=== PATIENT | female | born 1935 | race Caucasian/White ===

== ENCOUNTER → 2022-05-01 12:27 | Outpatient (CLI) | payer MEDICARE, SELFPAY ==
--- NOTE | ~2022-05-01 | DEXA_ITS ---
Bone Density Report Name: RENA CODY Age: 86 Sex: Female Ethnicity: White Date of : 1935 Indication: postmenopausal; screening for osteoporosis; height loss; Referring Provider: Humble, Janet Crooks Study: Bone densitometry was performed. Exam Date: May 01, 2022 Accession number: [id number] Bone Density: Region BMD T-score Z-score Classification AP Spine (L1-L4) 0.803 -2.2 0.6 Osteopenia Femoral Neck (Left) 0.500 -3.1 -0.7 Osteoporosis Total Hip (Left) 0.560 -3.1 -0.8 Osteoporosis Femoral Neck (Right) 0.450 -3.6 -1.1 Osteoporosis Total Hip (Right) 0.527 -3.4 -1.1 Osteoporosis Total Hip Mean 0.544 -3.3 -1.0 Osteoporosis World Health Organization criteria for BMD impression classify patients as: Normal (T-score at or above -1.0), Osteopenia (T-score between -1.0 and -2.5), or Osteoporosis (T-score at or below -2.5). 10-year Fracture Risk: FRAX not reported because: Some T-score for Spine Total or Hip Total or Femoral Neck at or below -2.5 Clinical Information Provided by Patient: Has 3 or more alcoholic drinks per day Patient maximum height was 66 Menopause Age: 60 No regular weight bearing exercise Does not regularly consume dairy products Drinks caffeinated beverages Onset of menses at age 16 Number of children 0 Impression: The patient has osteoporosis, based on the Right Femoral Neck T-score. The patient has risk factors, including: excessive alcohol use. Discussion: INCREASED RISK OF FRACTURE. BONE DENSITY IS UNDESIRABLY LOW AT ONE OR MORE SKELETAL SITES, CONSISTENT WITH POSTMENOPAUSAL OSTEOPOROSIS. This patient's lowest T-score meets the World Health Organization's (WHO) criteria for osteoporosis at one or more sites (T-score -2.5 or below). In untreated patients, the risk of osteoporotic fracture increases approximately two-fold for each 1.0 SD decrease in T-score. Low bone density is not the only risk factor for fracture; also consider factors such as patient's age, frailty or poor health, risk of falling, risk of injury, previous osteoporotic fracture, family history of osteoporosis, cigarette smoking, low body weight, etc. Not everyone with low bone mineral density has osteoporosis; osteomalacia and other metabolic bone disorders should also be considered. Patients who have osteoporosis should be evaluated for specific diseases and conditions (secondary causes) that may cause or contribute to bone loss. The [place] [employer]ocrinologists (AACE) and National Osteoporosis Foundation (NOF) recommend pharmacologic intervention for all postmenopausal women whose T-score is in this range. The patient should follow a healthful lifestyle (good nutrition with adequate calcium and vitamin D, and appropriate weight-bearing exercise). Follow-Up: Consider a repeat BMD and V
--- NOTE | ~2022-05-01 | XR_ITS ---
Lumbosacral Spine: AP and lateral views Clinical History: Pain Findings: The normal lordotic curve is maintained. No fracture or subluxation evident. There are mild degenerative changes of the lumbar spine. There is facet arthropathy at L4-L5 and L5-S1. The sacroil iac joints are normally outlined. Impression: Mild degenerative spondylosis, as detailed above. No definite fracture or subluxation. Reviewed, dictated and finalized at location . [facility] Impression: Mild degenerative spondylosis, as detailed above. No definite fracture or subluxation.
== END ==
PROVIDERS: PCP Nurse Practitioner Family; Visit Provider Nurse Practitioner Family
DX: M54.50 Low back pain, unspecified (principal); Z78.0 Asymptomatic menopausal state; M47.816 Spondylosis without myelopathy or radiculopathy, lumbar region; M85.88 Other specified disorders of bone density and structure, other site; M81.0 Age-related osteoporosis without current pathological fracture
CPT/HCPCS: 72100; 77080

== ENCOUNTER → 2022-10-03 10:23 | Outpatient (CLI) | payer SELFPAY ==
--- NOTE | ~2022-10-03 | XR_ITS ---
EXAMINATION: XR hand RT min 3V INDICATION: Right hand pain TECHNIQUE: Three views of the right hand are obtained. COMPARISON: None available FINDINGS: There is severe osteoarthritis of the interphalangeal joints. No acute fracture is identifi ed. The soft tissues are unremarkable. There is mild osteoarthritis of the wrist. IMPRESSION: 1. Polyarticular osteoarthritis. Reviewed, dictated and finalized at location []
--- NOTE | ~2022-10-03 | XR_ITS ---
EXAMINATION: XR wrist RT min 3V INDICATION: Right wrist pain TECHNIQUE: Four views of the right wrist are obtained. COMPARISON: None available FINDINGS: Bone alignment is normal. There is no fracture. There is mild osteoarthritis of the wrist. Calcified atherosclerosis is noted. IMPRESSION: 1. No acute osseous abnormality. Reviewed, dictated and finalized at location []
== END ==
PROVIDERS: PCP Nurse Practitioner Family; Visit Provider Nurse Practitioner Family
DX: M25.531 Pain in right wrist (principal); M19.041 Primary osteoarthritis, right hand
CPT/HCPCS: 73110; 73130

== ENCOUNTER 2024-08-23 13:20 | Emergency (ER) | payer MEDICARE, SELFPAY ==
--- NOTE | ~2024-08-23 | CT_ITS ---
History: Ground-level fall PROCEDURE: CT cervical spine without intravenous contrast. COMPARISON: 12/23/2013 TECHNIQUE: Multiple contiguous axial images of the cervical spine were performed without the administration of i ntravenous contrast. DLP: 97 mGy-cm FINDINGS: Straightening and slight reversal of the normal curvature of the cervical spine is identified, likely muscular in origin. Severe degenerative disease is noted. No acute fractures are present. Biapical scarring. Densely calcified atherosclerotic disease. The airway is patent. Impression: Straightening and slight reversal of the normal curvature of the cervical spine, likely muscular in o rigin. Severe degenerative disease, without acute fracture. Reviewed, dictated and finalized at location A. Impression: Straightening and slight reversal of the normal curvature of the cervical spine , likely muscular in origin. Severe degenerative disease, without acute fracture.
--- NOTE | ~2024-08-23 | XR_ITS ---
HISTORY: fall, abrasion, ecchymosis COMPARISON: None TECHNIQUE: 2 views of the right elbow were performed FINDINGS: No acute fracture is identified. No elevation of the anterior or posterior fat pads are identified to suggest a supracondylar fracture . Overlying soft tissues are unremarkable. Bone mineralization is age-appropriate. IMPRESSION: No acute fracture or dislocation, as detailed above Reviewed, dictated and finalized at location A.
--- NOTE | ~2024-08-23 | CT_ITS ---
History: Ground-level fall. PROCEDURE: CT head without contrast. COMPARISON: 12/24/2023 TECHNIQUE: Axial imaging of the head performed from the skull base to the vertex without IV contrast. Sagittal a nd coronal reformations obtained. DLP: 681 mGy-cm FINDINGS: The ventricles are enlarged. The dilatation of the ventricles is proportional to the degree of sulcal prominence, not uncommon in the senescent brain. 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 Basal ganglia calcifications are present. There is no mass, mass effect or midline shift. There is no abnormal extra-axial fluid collection or intracranial hemorrhage. Visualized paranasal sinuses are clear. The mastoid air cells are well aerated. No acute displaced fractures within the overlying cranium. Skin malgorzata project over the right posterior scalp. Impression: No acute intracranial hemorrhage or suspicious mass effect. Reviewed, dictated and finalized at location A. Impression: No acute intracranial hemorrhage or suspicious mass effect.
[2024-08-23 13:21] VITALS: BP 153/77; PULSE 102; RESP 19; TEMP 36.8; O2SAT 97
--- OUTSIDE RECORDS SUMMARY | 2024-08-23 13:56 | XMS_ITS ---
Author Organization [employer] [address] [place] [address] [place] [id number] Care Team Providers Care Water Team Leader Name Role Phone Lucien Choudhary MD Primary Care Provider [phone] Active Problems Patient Care Coordination No te Formatting of this note migh t be different from the original. 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 2006, clinically stage I 201009/08/2010 Overview (02/09/2011): Left Breast 2006: ICD9 174.5 (LOQ) ER/NJ(-) DCIS Lumpectomy ([facility]) RT: 08/08-08/14/06 MammoSite HDR Brachy 3400 cGy in 340 cGy x 10 fx bid 2010: ICD9 174.4 (UOQ - 4.5 cm away from 1st cancer) Clinical Stage I Pathologic Stage yTx yN0 ER/NJ(-) G3 IDC Med Onc ([facility]): Neoadjuvant FEC x 3 & Taxotere x 3 Lumpectomy/SLN (02/05/11 - [facility]): pCR, 0/1 SLN Breast Cancer left 2010 cT1N0 pT0N0 09/08/2010 Overview (04/28/2013): 4/12/07 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 Past Treatment and Therapy Plans No past plan information found. Lifetime Dose Tracking * Chemical Lifetime Dose Automatic Entry Manual Entr y epirubicin 302.326 mg/m2 (522 mg) 302.326 mg/m2 (522 mg) 0 mg/m2 (0 mg) Effective Dose 3.3 mSv 3.3 mSv 0 mSv Total DLP 1,203 DLP 1,203 DLP 0 DLP CTDIvol Max 64.3 mGy 64.3 mGy 0 mGy CTDIvol Min 64.3 mGy 64.3 mGy 0 mGy
--- OUTSIDE RECORDS SUMMARY | 2024-08-23 13:56 | XMS_ITS | Encounter Summary ---
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 Machine Operator Name Role Phone Ovi MONTEIRO MD, Vazquez Phillips Primary Care Provider Encounter Details Date Type Department Care Team (Late st Contact Info) Description 07/27/2024 Results Follow-Up [facility] at [address] [phone] Jennifer Garcia NP [address] [facility] [address] [place] [address] XR Knee Left 4 or More Views Social History Tobacco Use Types Packs/Day Years Used Date Smoking Tobacco: Former Cigarettes 0.5 21 1 958 - 04/16/1978 Smokeless Tobacco: Never Alcohol Use Standard Drinks/Week Comments Yes 4 (1 standard drink = 0.6 oz pur e alcohol) AUDIT-C Answer Date Recorded Q1: How often do you have a drink containing alcohol? Never 05/13/2024 Q2: How many drinks containi ng alcohol do you have on a typical day when you are drinking? Patient does not drink Q3: How often do you have si x or more drinks on one occasion? 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
--- OUTSIDE RECORDS SUMMARY | 2024-08-23 13:56 | XMS_ITS | Clinical Summary ---
Author Organization [facility] Address [facility] [place] [address] Care Team Providers Care Senior Specialist Name Role Phone Ovi MONTEIRO MD, Vazquez Phillips Primary Care Provider Allergies Active Allergy Reactions Criticality Noted Date Comments Aspirin Nausea & Vomiting Low 04/16/2018 Omeprazole Stomach upset Low 01/24/2021 Penicillins Nausea And Vomiting,Unknown,Rash Medium 10/31/2017 Many years ago but doesn't recall what the reaction was Medications acetaminophen (TYLENOL) 500 mg tablet Take 1 tablet (500 mg total) by mouth every 4 (four) hours as needed for pain or headaches 8 Active alfalfa 250 mg tabletIndicati ons:for supplement Take 500 mg by mouth every morning. Active cyanocobalamin , vitamin B-12, 5,000 mcg tablet, sublingualIndi cations:for supplement Place 5,000 mg under the tongue 2 (two) times a day. Active turmeric-turme lionel root extract 450-50 mg capsuleIndicat ions:for supplement Take 1 capsule by mouth 2 (two) times a day. Active VITAMIN K2 ORALIndication s:for supplement Take 100 mg by mouth every morning. Active aspirin 81 mg tabletIndicati ons:prevention of thrombosis Take 1 tablet (81 mg total) by mouth every morning Active biotin 5 mg tabletIndicati ons:for supplement Take 5 mg by mouth every morning Active cholecalcifero l (VITAMIN D-3) 2,000 unit capsuleIndicat ions:for supplement Take 1 capsule (2,000 Units total) by mouth every morning Active vit C/vit E/lutein/min/o yanni-3 (OCUVITE ORAL)Indicatio ns:for supplement Take 1 tablet by mouth every morning Active trimethoprim-p olymyxin B (POLYTRIM) ophthalmic solutionIndica tions:per Dr. Chapman presurgery Administer into the right eye every 6 (six) hours. Active ketorolac (ACULAR) 0.5 % ophthalmic solutionIndica tions:Dr. Chapman preop Administer 1 drop into the right eye 3 (three) times a day Active Viktoria's wort 150 mg capsuleIndicat ions:for supplement Take by mouth 2 (two) times a day Active jvpftjaw-vng-l hondr-vit C-hyal 215-075-885-10 mg tabletIndicati ons:for supplement Take by mouth every morning Active zolpidem (AMBIEN) 5 mg tabletIndicati ons:Sleep-Onse t Insomnia Take 1 tablet (5 mg total) by mouth nightly 90 tablet 1 0 Active Additional Information Patient not taking.Reported on 08/13/2024 LORazepam (ATIVAN) 0.5 mg tablet 1 Active mirtazapine (REMERON) 7.5 mg tablet Take 1 tablet (7.5 mg total) by mouth nightly Start at 1/2 pill nightly for now. 30 tablet 1 Active Additional Information Patient not taking.Reported on 08/10/2024 lidocaine (ASPERCREME) 4 % adhesive patch,medicate d Active PARoxetine (PAXIL) 10 mg tablet Take 1 tablet (10 mg total) by mouth daily 3 Active alendronate (FOSAMAX) 70 mg tablet 3 Active amLODIPine (NORVASC) 5 mg tablet Take 1 tablet (5 mg total) by mouth daily 4 Active donepeziL (ARICEPT) 5 mg tablet Take 1 tablet (5 mg total) by mouth daily 4 Active escitalopram (LEXAPRO) 20 mg tablet Take 1 tablet every day by oral route. Active diclofenac sodium (VOLTAREN) 1 % gelIndications :Acute pain of left knee Apply 2 g topically 2 (two) times a day 100 g 5 Active rosuvastatin (CRESTOR) 20 mg tablet Take 1 tablet (20 mg total) by mouth daily 5 Active losartan (COZAAR) 50 mg tablet TAKE 1 TABLET TWICE A DAY BY ORAL ROUTE FOR 90 DAYS. 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 Overview (02/15/2023): Breast conservation, DCIS, ER negative, [place] negative, November 2006.Stage 0 H/O: depression 02/15/2023 Invasive ductal carcinoma of breast 02/15/2023 Lumbar spondylosis 01/17/2023 Pain of left hip joint 01/17/2023 Soft tissue swelling of ankle joint 01/17/2023 Constipation 10/03/2022 Pain in right hand 10/03/2022 Osteoporosis 05/01/2022 Gastroesophageal reflux disease 08/09/2021 Swelling of breast 06/01/2021 Numbness and tingling sensation of skin 03/29/20 Anxiety 10/25/2020 Essential hypertension 10/25/2020 Allergic rhinitis 07/15/2020 Pain in throat 07/07/2020 Hyperglycemia 02/23/2020 Hyperlipidemia 02/23/2020 Insomnia 02/23/2020 Major depressive disorder 02/23/2020 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 Patient is to follow up with us immediately if new changes on AMSLER, new central scotoma, new central distortion, or sudden vision loss occurs. Smoking cessation if patient is a current tobacco user. 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 Suspicious of AMD. No hemorrhage noted today. -- Would explain metamorphopsia OS which could be causing visual confusion leading to her trouble reading -- Symptoms could have been previously masked by her cataract OS -- Referral to retina for evaluation and possible treatment Pseudophakia of both eyes 07/07/2018 Assessment & Plan (03/02/2020 11:51 AM ZONE SUPERVISOR FIREAR[employer]): Stable exam. Trouble with near-vision, may be partially due to macular degeneration. Consider MRx today. Assessment & Plan (08/26/2018 2:04 PM CDT): -Stable, continue to monitor -Signs and symptoms of retinal detachment and tears discussed with the patient Assessment & Plan (07/07/2018 3:30 PM CDT): Implants in good location OU Closed displaced transverse fracture of shaft of right humerus 03/05/2017 BRCA1 positive 02/12/2012 Family history of genetic disease carrier 2011 Family history of breast cancer 11/29/2011 Family history of colorectal cancer 11/29/2011 Family history of ovarian cancer 11/29/2011 Closed fracture of distal end of radius 11/24/19 11 Malignant neoplasm of upper-outer quadrant of fe male breast 09/08/2010 Overview (02/15/2023): 07/18/06 LEFT breast DCIS int grade ER-[place]- S/p lumpectomy & MammoSite HDR Brachy (August 2006) 09/05/10 Stage LABC ( Tx Nx Mx) IDC LEFT breast TRIPLE NEGATIVE Ki67 94% Plan: neoadjuvant Clinically stage 1 (14mm by u/s) T1N0 Malignant neoplasm of breast 09/07/2010 Encounters Date Type Department Care Team Description 08/13/2024 11:15 AM CDT Office Visit [facility] at [address] [place] [address] Lucien Mendez DO Displaced comminuted fracture of left patella, initial encounter for closed fracture (Primary Dx) 08/11/2024 Telephone [facility] [address] [place] [address] [address] [address] Jami Goodman MA 08/10/2024 4:00 PM CDT Ancillary Procedure [facility] at [address] [phone] Fall, initial encounter 08/10/2024 3:45 PM CDT Office Visit [facility] at [address] [phone] Jennifer Garcia, ENGLISH AS A SECOND LANGUAGE TEACHER Fall, initial encounter (Primary Dx); Closed displaced fracture of left patella, unspecified fracture morphology, initial encounter 08/10/2024 Results Follow-Up [facility] at [address] [phone] Jennifer Garcia, ENGLISH AS A SECOND LANGUAGE TEACHER XR Knee Left 3 Views 07/27/2024 2:35 PM CDT Ancillary Procedure [facility] at [address] [phone] Acute pain of left knee 07/27/2024 2:30 PM CDT Office Visit [facility] at [address] [phone] Jennifer Garcia, ENGLISH AS A SECOND LANGUAGE TEACHER Acute pain of left knee (Primary Dx); Closed nondisplaced fracture of left patella, unspecified fracture morphology, initial encounter 07/27/2024 Results Follow-Up [facility] at [address] [phone] Jennifer Garcia, ENGLISH AS A SECOND LANGUAGE TEACHER XR Knee Left 4 or More Views 06/19/2024 11:45 AM CDT Ancillary Procedure [facility] at [address] [phone] 06/19/2024 11:15 AM CDT Office Visit [facility] at [address] [phone] Lucien Mendez DO Closed nondisplaced fracture of third metatarsal bone of right foot with routine healing, subsequent encounter (Primary Dx) 06/04/2024 11:15 AM ZONE SUPERVISOR FIREARMS Ancillary Procedure [facility] at [address] [phone] Acute left ankle pain 06/04/2024 10:45 AM ZONE SUPERVISOR FIREAR[employer] Office Visit [facility] at [address] [place] [address] Lucien Mendez DO Closed nondisplaced fracture of third metatarsal bone of right foot with routine healing, subsequent encounter (Primary Dx); Acute left ankle pain 06/04/2024 10:35 AM ZONE SUPERVISOR FIREARMS Ancillary Procedure [facility] at [address] [phone] Closed nondisplaced fracture of third metatarsal bone of right foot, initial encounter from Last 3 Months Surgical History Surgery Date Site/Laterality Comments ARM SURGERY 11/06/2017 - 12/06/2017 Right Fracture Humerus Repaired CYSTOSCOPY for kidney stone BREAST SURGERY 2006, 2010 lumpectomy CATARACT EXTRACTION 04/23/2018 Right Medical History Medical History Date Comments Depression HTN (hypertension) Ductal carcinoma in situ (DCIS) of breast Family History Medical History Relation Name Comments Colon cancer Mother Cancer, colon; Glaucoma Neg Hx Macular degeneration Neg Hx Retinal detachment Neg Hx Relation Name Status Comments Mother Social History Tobacco Use Types Packs/Day Years Used Date Smoking Tobacco: Former Cigarettes 0.5 21 1 958 - 04/16/1978 Smokeless Tobacco: Never Tobacco Cessation:Counseling Given: Not Answered Alcohol Use Standard Drinks/Week Comments Yes 4 [...] on file Legal Sex Female 8:43 PM 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 SUPERVISOR FIREAR[employer] Gender Identity Not on file Sexual Orientation Not on file Obstetrics History Last Filed Vital Signs Vital Sign Reading Time Taken Comments Blood Pressure 142/64 08/13/2024 11:11 AM CDT Pulse 99 08/13/2024 11:11 AM CDT Temperature 36.4 C (97.6 F) 08/10/2024 3:37 PM CDT Respiratory Rate 16 08/13/2024 11:11 AM CDT Oxygen Saturation 98% 08/10/2024 3:37 PM CDT Inhaled Oxygen Concentration - - Weight 53.3 kg (117 lb 6.4 oz) 08/13/2024 11:11 AM CDT Height 160 cm (5' 3 ) 08/13/2024 11:11 AM CDT Body Mass Index 20.8 08/13/2024 11:11 AM CDT Plan of Treatment Health Maintenance Due Date Last Done Comments Depression Screening 1935 Fall Risk Assessment 1935 DTaP/Tdap/Td Vaccine (1 - Tdap) 1948 Hepatitis B Screening 12/01/1955 Pneumococcal vaccine 65+ (1 of 1 - PCV) 12/01/1987 Zoster Vaccine (1 of 2) 12/01/1987 Well Visit 65+ 2002 Covid-19 Vaccine (5 - 2023-2 5 season) 2023 07/20/2021, 12/30/2020, 06/29/2020, Additional history exists Influenza Vaccine (Season Ended) 2024 Medical Devices Implanted Type Area Feather Mixer Device Identifier Shelf Expiration Date Model / Serial / Lot [employer] [id number] Tecnis Protec Tecnis Itec 6mm 13mm 1 Piece Anterior Aspheric - [id number] - [id number] Implanted:Qty: 1 on 04/23/2018 by Kareem Chapman MD at [facility] Lens [employer] [id number] 11/23/2020 [id number] / [id number] / [employer] [id number] Tecnis Protec Tecnis Itec 6mm 13mm 1 Piece Anterior Aspheric - [id number] - [id number] Implanted:Qty: 1 on 05/14/2018 by Kareem Chapman MD at [facility] Medicine Lens Left: Eye [employer] [id number] 01/21/2021 [id number] / [id number] / 0 Procedures Procedure Name Priority Date/Time Associated Diagnosis Comments XR KNEE LEFT 3 VIEWS Schedule ROSE MARIE, Read ROSE MARIE (Appt Today, Awaiting Results) 08/10/2024 4:07 PM CDT Fall, initial encounter XR KNEE LEFT 4 OR MORE VIEWS Schedule ROSE MARIE, Read ROSE MARIE (Appt Today, Awaiting Results) 07/27/2024 2:43 PM CDT Acute pain of left knee XR FOOT RIGHT 3 OR MORE VIEWS Schedule Routine, Read Routine (OP Routine) 06/19/2024 11:20 AM CDT Closed nondisplaced fracture of third metatarsal bone of right foot with routine healing, subsequent encounter XR ANKLE LEFT 3 OR MORE VIEWS Schedule Routine, Read Routine (OP Routine) 06/04/2024 11:20 AM ZONE SUPERVISOR FIREARMS Acute left ankle pain XR FOOT RIGHT 3 OR MORE VIEWS Schedule Routine, Read Routine (OP Routine) 06/04/2024 10:46 AM ZONE SUPERVISOR FIREAR[employer] Closed nondisplaced fracture of third metatarsal bone of right foot, initial encounter from Last 3 Months Results * XR Knee Left 3 Views (08/10/2024 4:07 PM CDT) Anatomical Region Laterality Modality Lower Extremities, Knee Left Digital Radiography 08/10/2024 5:25 PM CDT Narrative 08/10/2024 5:27 PM CDT EXAM DESCRIPTION: XR KNEE LEFT 3 VIEWS REASON FOR STUDY: Knee trauma, no prior imaging (Age >= 5y), new fall yesterday- previous suspected patellar fracture. Pt complains of left knee pain after fall. Prior patella fx a few weeks ago. No prior surgery TECHNIQUE: 3 radiographic view(s) of the left knee . COMPARISON: 07/27/2024 FINDINGS: Patellar fracture is evident with significant displacement of the fragments . Other bones appear to be intact. The bones are osteopenic. Anterior soft tissue swelling is noted. Joint effusion is suspected anteriorly. IMPRESSION: Patellar fracture with displacement of fragments. THIS IS AN ELECTRONICALLY VERIFIED FINAL REPORT 08/10/2024 5:27 PM - Electronically signed by Geraldo Traore M.D. KH T: Report ID: [id number] Reading Location: [place] [address] Procedure Note Geraldo Traore MD - 08/10/2024 EXAM DESCRIPTION: XR KNEE LEFT 3 VIEWS REASON FOR STUDY: Knee trauma, no prior imaging (Age >= 5y), new fall yesterday- previous suspected patellar fracture. Pt complains of left knee pain after fall. Prior patella fx a few weeksago. No prior surgery TECHNIQUE: 3 radiographic view(s) of the left knee . COMPARISON: 07/27/2024 FINDINGS: Patellar fracture is evident with significant displacement ofthe fragments . Other bones appear to be intact. The bones are osteopenic. Anterior soft tissue swelling is noted. Joint effusion is suspected anteriorly. IMPRESSION: Patellar fracture with displacement of fragments. THIS IS AN ELECTRONICALLY VERIFIED FINAL REPORT 08/10/2024 5:27 PM - Electronically signed by Geraldo LAWSON T: Report ID: [id number] Reading Location: [place] [address] Jennifer Garcia NP IMG XR PROCEDURES Final Re sult * XR Knee Left 4 or More Views (07/27/2024 2:43 PM CDT) Anatomical Region Laterality Modality Lower Extremities, Knee Left Digital Radiography 07/27/2024 3:08 PM CDT Narrative 07/27/2024 3:20 PM CDT EXAM DESCRIPTION: XR KNEE LEFT 4 OR MORE VIEWS REASON FOR STUDY: accidental fall, fall on 07/12, knee swelling continued bruising Pt complains of left knee pain x 2 weeks after a fall. Pain and swelling to front of knee. No prior surgery or fx TECHNIQUE: 4 radiographic view(s) of the left knee . COMPARISON: None available FINDINGS: No dislocation is seen.. Linear lucency is seen within the patella on the patellar and lateral views, involving the superior aspect of the patella, suspicious for nondisplaced fracture. There is anterior soft tissue swelling. There is small joint effusion. There is atherosclerosis. IMPRESSION: Suspect nondisplaced left patellar fracture. Small joint effusion. Anterior soft tissue swelling. THIS IS AN ELECTRONICALLY VERIFIED FINAL REPORT 07/27/2024 3:20 PM - Electronically signed by Donald Rivera M.D. MZ T: Report ID: [id number] Reading Location: [id number] Procedure Note Donald Rivera MD - 07/27/2024 EXAM DESCRIPTION: XR KNEE LEFT 4 OR MORE VIEWS REASON FOR STUDY: accidental fall, fall on 07/12, knee swelling continued bruising Pt complains of left knee pain x 2 weeks after a fall. Pain and swellingto front of knee. No prior surgery or fx TECHNIQUE: 4 radiographic view(s) of the left knee . COMPARISON: None available FINDINGS: No dislocation is seen.. Linear lucency is seen within thepatella on the patellar and lateral views, involving the superior aspect of the patella, suspicious for nondisplaced fracture. There is anterior softtissue swelling. There is small joint effusion. There is atherosclerosis. IMPRESSION: Suspect nondisplaced left patellar fracture. Small joint effusion. Anterior soft tissue swelling. THIS IS AN ELECTRONICALLY VERIFIED FINAL REPORT 07/27/2024 3:20 PM - Electronically signed by Donald Rivera M.D. MZ T: Report ID: [id number] Reading Location: [id number] Jennifer Garcia NP IMG XR PROCEDURES Final Re sult * XR Foot Right 3 or More Views (06/19/2024 11:20 AM CDT) Anatomical Region Laterality Modality Lower Extremities, Foot Right Digital Radiography 06/25/2024 12:5 7 PM CDT Narrative 06/25/2024 1:11 PM CDT EXAM DESCRIPTION: XR FOOT RIGHT 3 OR MORE VIEWS REASON FOR STUDY: pain Follow up third metatarsal fracture from 05/05 FINDINGS: Three views submitted with comparison 06/04/2024. Healing right 3rd and 4th metatarsal neck and small toe proximal phalanx fractures are present. Polyarticular midfoot osteoarthritis is present. Hallux valgus with a bunion deformity and moderate 1st metatarsophalangeal joint osteoarthritis. IMPRESSION: Healing right 3rd and 4th metatarsal neck and small toe proximal phalanx fractures. THIS IS AN ELECTRONICALLY VERIFIED FINAL REPORT 06/25/2024 1:11 PM - Electronically signed by Lucien Swartz M.D. T: Report ID: [id number] Reading Location: [id number] Procedure Note Lucien Swartz MD - 06/25/2024 EXAM DESCRIPTION: XR FOOT RIGHT 3 OR MORE VIEWS REASON FOR STUDY: pain Follow up third metatarsal fracture from 05/05 FINDINGS: Three views submitted with comparison 06/04/2024. Healing right 3rd and 4th metatarsal neck and small toe proximal phalanx fractures are present. Polyarticular midfoot osteoarthritis is present. Hallux valgus with a bunion deformity and moderate 1st metatarsophalangeal joint osteoarthritis. IMPRESSION: Healing right 3rd and 4th metatarsal neck and small toe proximal phalanx fractures. THIS IS AN ELECTRONICALLY VERIFIED FINAL REPORT 06/25/2024 1:11 PM - Electronically signed by Lucien Swartz M.D. T: Report ID: [id number] Reading Location: [place] [address] Lucien Mendez DO IMG XR PROCEDURES Gloria l Result * XR Ankle Left 3 or More Views (06/04/2024 11:20 AM ZONE SUPERVISOR FIREAR[employer]) Anatomical Region Laterality Modality Lower Extremities, Ankle Left Digital Radiography 06/07/2024 8:12 PM ZONE SUPERVISOR FI[employer]AR[employer] Narrative 06/07/2024 8:16 PM ZONE SUPERVISOR [employer] EXAM DESCRIPTION: XR ANKLE LEFT 3 OR MORE VIEWS REASON FOR STUDY: Left ankle pain Pt complains of left ankle pain just today. No prior fx or surgery FINDINGS: Three views nonweightbearing submitted without comparison. No acute fracture. Likely old healed left ankle fracture is noted. Ankle joint space and mortise are normal. No evidence of an ankle effusion. Mild calcaneocuboid joint osteoarthritis is present. Arterial atherosclerosis noted. Mild lateral ankle soft tissue swelling. IMPRESSION: No acute fracture. Mild lateral ankle soft tissue swelling. Mild left calcaneocuboid joint osteoarthritis. THIS IS AN ELECTRONICALLY VERIFIED FINAL REPORT 06/07/2024 8:16 PM - Electronically signed by Lucien Swartz M.D. T: Report ID: [id number] Reading Location: [id number] Procedure Note Lucien Swartz MD - 06/07/2024 EXAM DESCRIPTION: XR ANKLE LEFT 3 OR MORE VIEWS REASON FOR STUDY: Left ankle pain Pt complains of left ankle pain just today. No prior fx or surgery FINDINGS: Three views nonweightbearing submitted without comparison. No acute fracture. Likely old healed left ankle fracture is noted. Ankle joint space and mortise are normal. No evidence of an ankle effusion.Mild calcaneocuboid joint osteoarthritis is present. Arterial atherosclerosis noted. Mild lateral ankle soft tissue swelling. IMPRESSION: No acute fracture. Mild lateral ankle soft tissue swelling. Mild left calcaneocuboid joint osteoarthritis. THIS IS AN ELECTRONICALLY VERIFIED FINAL REPORT 06/07/2024 8:16 PM - Electronically signed by Lucien Swartz M.D. T: Report ID: [id number] Reading Location: [id number] Lucien Mendez DO IMG XR PROCEDURES Gloria l Result * XR Foot Right 3 or More Views (06/04/2024 10:46 AM ZONE SUPERVISOR FIREAR[employer]) Anatomical Region Laterality Modality Lower Extremities, Foot Right Digital Radiography 06/07/2024 2:02 PM ZONE SUPERVISOR FI[employer]AR[employer] Narrative 06/07/2024 2:07 PM ZONE SUPERVISOR [employer]AR[employer] EXAM DESCRIPTION: XR FOOT RIGHT 3 OR MORE VIEWS REASON FOR STUDY: pain Follow up right third metatarsal fracture from 05.05.24 TECHNIQUE: 3 radiographic view(s) of the right foot . COMPARISON: 05/13/2024 and 05/05/2024 FINDINGS: BONES/JOINTS: Redemonstration of fracture at the neck of the 4th metatarsal. There has been no significant interval change in alignment. There is some sclerosis indicative fracture healing. There is a healing fracture at the neck of the 3rd metatarsal. There is redemonstration of nondisplaced fracture involving the base of the proximal phalanx of the 4th toe, which does extend to the articular surface. There is redemonstration of a fracture involving the distal aspect of the proximal phalanx of the 5th toe. There has been some interval change in alignment, with mild angulation and mild displacement, new compared to the prior examination. Diffuse demineralization. Polyarticular osteoarthritis. Hallux valgus noted. SOFT TISSUES: Atherosclerotic vascular calcifications. IMPRESSION: 1. Interval development of mild displacement and angulation of fracture at the distal aspect of the proximal phalanx of the 5th toe. No significant interval healing. 2. Nondisplaced intra-articular fracture at the base of the 4th proximal phalanx, stable in alignment. 3. Healing fractures involving the neck of the 4th metatarsal and the neck of the 3rd metatarsal. Alignment stable THIS IS AN ELECTRONICALLY VERIFIED FINAL REPORT 06/07/2024 2:07 PM - Electronically signed by Yun Sexton M.D. TW T: Report ID: [id number] Reading Location: [id number] Procedure Note Yun Sexton MD - 06/07/2024 EXAM DESCRIPTION: XR FOOT RIGHT 3 OR MORE VIEWS REASON FOR STUDY: pain Follow up right third metatarsal fracture from 05.05.24 TECHNIQUE: 3 radiographic view(s) of the right foot . COMPARISON: 05/13/2024 and 05/05/2024 FINDINGS: BONES/JOINTS: Redemonstration of fracture at the neck of the 4th metatarsal. There has been no significant interval change in alignment. There is some sclerosis indicative fracture healing. There is a healing fracture at the neck of the 3rd metatarsal. There is redemonstration of nondisplaced fracture involving the base ofthe proximal phalanx of the 4th toe, which does extend to the articularsurface. There is redemonstration of a fracture involving the distal aspect of the proximal phalanx of the 5th toe. There has been some interval change in alignment, with mild angulation and mild displacement, new compared to the prior examination. Diffuse demineralization. Polyarticular osteoarthritis. Hallux valgusnoted. SOFT TISSUES: Atherosclerotic vascular calcifications. IMPRESSION: 1. Interval development of mild displacement and angulation of fractureat the distal aspect of the proximal phalanx of the 5th toe. No significant interval healing. 2. Nondisplaced intra-articular fracture at the base of the 4th proximal phalanx, stable in alignment. 3. Healing fractures involving the neck of the 4th metatarsal and theneck of the 3rd metatarsal. Alignment stable THIS IS AN ELECTRONICALLY VERIFIED FINAL REPORT 06/07/2024 2:07 PM - Electronically signed by Yun Sexton M.D. TW T: Report ID: [id number] Reading Location: [place] [address] Lucien Mendez DO IMG XR PROCEDURES Gloria l Result from Last 3 Months Insurance [facility] PPO [facility] [facility] [employer] PPO [employer] HMO PPO [employer] HMO PPO Advance Directives For more information, please contact: [phone] * Full Code (Latest Code Status on File) Date Activated Date Inactivated Comments 05/14/2018 7:49 AM 05/14/2018 2:47 PM * Full Code Date Activated Date Inactivated Comments 04/23/2018 11:00 AM 04/23/2018 6:40 PM Care Teams Senior Specialist Relationship Specialty Start Date End Date Vazquez Dior III, MD [address] [place] [address] PCP - General Family Medicine 09/23/23
--- OUTSIDE RECORDS SUMMARY | 2024-08-23 13:56 | XMS_ITS | Data Portability ---
Author Organization Cued, Medical Address [address] [place] [address] Assessment No assessment recorded. Plan of Treatment Reminders Order Date Submit Date Provider Last Modified By Organization Details Last Modified Time Details Appointments None recorded. Lab vitamin B12 + folate, serum or blood 2023 [facility], [address], [place], [address], 17:44:00 T3, free, serum or plasma 2023 024 [facility], [address], [place], [address], 4 17:43:59 T3, reverse, serum 2023 024 [facility], [address], [place], [address], 4 17:43:59 TSH, serum or plasma 2023 024 [facility], [address], [place], [address], 4 17:43:58 T4, free, serum 2023 024 [facility], [address], [place], [address], 4 17:43:58 T3, total, serum 2023 024 [facility], [address], [place], [address], 4 17:43:59 collagen cross-linke d C-telopepti de (ctx), serum 2023 [facility], [address], [place], [address], 4 17:44:01 vitamin D, 25-hydroxy, total, serum 2023 [facility], [address], [place], [address], 4 17:43:57 magnesium, RBC 2023 [facility], [address], [place], [address], 4 17:44:02 CMP, serum or plasma 2023 [facility], [address], [place], [address], 4 17:43:56 CBC w/ auto diff 2023 [facility], [address], [place], [address], 4 17:44:00 lipid panel, serum 2023 [facility], [address], [place], [address], 4 17:43:55 homocystein e, serum or plasma 2023 [facility], [address], [place], [address], 17:43:56 insulin, serum 2023 [place] [facility], [address], [place], [address], 4 17:44:01 hemoglobin A1c + average glucose, QN, blood 2023 [facility], [address], [place], [address], 4 10:22:42 CRP, high sensitivity , serum or plasma 2023 [facility], [address], [place], [address], 17:43:55 Referral None recorded. Procedures None recorded. Surgeries None recorded. Imaging US, echocardiog luz maria 2023 [facility] (Scheduling), [address] , [place], [address], 17:52:45 Medication Orders donepezil 5 mg tablet 2023 024 [facility]acy #[id number], [address] [place], [address], 10:21:55 amlodipine 5 mg tablet 2023 024 [facility]/Pharmacy #[id number], [address] [place], [address], 4 10:21:56 Patient TargetsNo targets recorded. Patient Instructions Encounter Date Encounter Id Patient Instructions Last Modified By Organization Details Last Modified Time 09/20/2023 [id number] Schedule Extende d with Vazquez in late November Schedule Fasting Labs (ordered today) Schedule APV with Arabella with a MOCA Optimizing Nutrition, Metabolism, Cholesterol, Blood Pressure, and Strength Goal: Aim for protein at each meal, can have an egg or two a day Goal: Increase the variety of non starchy vegetables in general Continue to drink alot of water Goal: Avoid sweets, junk food, fast food Goal: Track steps and set a goal of Goal: Begin wearing ankle and wrist weights Check and echocardiogram and an ultrasound of the arteries in your neck Continue your losartan 50 mg twice a day Begin Amlodipine 5 mg a day Optimizing Sleep, Mood, and Stress Resilience Continue your paxil every night Begin Donepezil 5 mg at night Improving Musculoskeletal Health Try to stretch every day Supplements: [place] Prevagen begin Palm Mag 1 before bedtime Begin D3?k2 5000 iu a day hroca Not available 09/20/2023 10:19:39 11/27/2023 [id number] Schedule Follow up with Vazquez in late February Fasting Labs to be ordered in February Optimizing Nutrition, Metabolism, Cholesterol, Blood Pressure, and Strength Goal: Aim for protein at each meal, can have an egg or two a day Goal: Increase the variety of non starchy vegetables in general Continue to drink alot of water Goal: Avoid sweets, junk food, fast food Goal: Track steps and set a goal of Goal: Begin wearing ankle and wrist weights Switch your carbohydrates to complex, whole grain carbohydrates Continue your losartan 50 mg twice a day Amlodipine 5 mg a day Continue rosuvastatin 20 mg a day Begin eating 5 to 10 brazil nuts a day Begin Palm Active Bs 1 twice a day Optimizing Sleep, Mood, and Stress Resilience Continue your paxil every night Donepezil 5 mg at night Continue Paroxetine 10 mg a day Improving Musculoskeletal Health Try to stretch every day Supplements: [place] Prevagen Palm Mag 1 before bedtime D3/k2 5000 iu a day Palm Active Bs 1 twice a day hroca Not available 11/27/2023 11:37:23 Reason for Referral None Reported. Results Created Date Observation Date Name Description Value Unit Range Abnormal Flag Note LastModifiedBy Organization Detail LastModifiedTime 11/07/19 24 11/18/2023 LIPID PANEL , STAND ETHAN cholesterol, total 206 mg/dL <200 high Not Available [facility] [address] [place], [address], 11/18/2023 17:43:55 11/07/1911/18/2023 LIPID PANEL , STAND ETHAN HDL cholesterol 104 mg/dL > or = 50 normal Not Available [address], [place], [address], 11/18/2023 17:43:55 11/07/19 24 11/18/2023 LIPID PANEL , STAND ETHAN triglyceride s 123 mg/dL <150 normal Not Available [facility] [address] [place], [address], 11/18/2023 17:43:55 11/07/19 24 11/18/2023 LIPID PANEL , STAND ETHAN LDL-choleste rol 80 mg/dL _(светлана c) normal Refer ence range : <100 Leander able range <100 mg/dL for prima ry preve ntion ; <70 mg/dL for patie nts with CHD or diabe tic patie nts with > or = 2 CHD risk facto rs. LDL-C is now calcu lated using the Patricia kahn-Hop kins sarikau soraya n, which is a valid ated novel juma ahn r accur acy than the Fried florinda equat ion in the estim ation of LDL-C . Patricia kahn SS et al. MARTHA. 2013; 310(1 9): 2061- 2068 (http ://ed ucati on.Tweegee Jose Alkymos. com/f aq/FA Q164) Not Available [facility] [address], [place], [address], 11/18/2023 17:43:55 11/07/19 24 11/18/2023 LIPID PANEL , STAND ETHAN chol/HDLC ratio 2.0 (calc ) <5.0 normal Not Available [facility] [address] [place], [address], 11/18/2023 17:43:55 11/07/19 24 11/18/2023 LIPID PANEL , STAND ETHAN non HDL cholesterol 102 mg/dL _(светлана c) <130 normal For patie nts with diabe nghia plus 1 major ASCVD risk facto r, treat ing to a non-H DL-C goal of <100 mg/dL (LDL- C of <70 mg/dL ) is consi dered a thera peuti c optio n. Not Available [facility] [address] [place], [address], 11/18/2023 17:43:55 11/07/1911/18/2023 HS CRP hs CRP 0.7 mg/L normal Refer ence Range Optim al <1.0 Trixie moraes PS et al. Endoc r Pract .2017 ;23(S uppl 2):1- 87. For ages >17 Years : hs-CR P mg/L Risk Accor ding to AHA/C DC Guide lines <1.0 Lower relat thiago cardi ovasc ular risk. 1.0-3 .0 [place] ge relat thiago cardi ovasc ular risk. 3.1-1 0.0 Highe r relat thiago cardi ovasc ular risk. Consi harmeet retes ting in 1 to 2 weeks to exclu de a benig n trans ient eleva tion in the basel ine CRP value secon desiree to infec tion or infla mmati on. >10.0 Persi stent eleva tion, upon retes ting, may be assoc iated with infec tion and infla mmati on. Pears on TA, Mensa h [place], Yandy venegas RW, et al. [facility] rs of infla mmati on and cardi ovasc ular disea se: appli catio n to clini светлана and publi c healt h pract ice: A state ment for healt marire profestrellita berumenon als from the [facility] rs for Disea se Contr ol and Preve ntion and the Ameri can Heart Assoc iatio n. Circu latio n 2003; 107(3 ): 499-5 11. Not Available [facility] [address] [place], [address], 11/18/2023 17:43:55 11/07/1911/18/2023 HOMOC YSTEI NE homocysteine 28.4 umol/ L <10.4 high Homoc ystei ne is incre ased by funct ional defic iency of folat e or vitam in B12. Testi ng for methy lmalo sonia acid diffe renti ates betwe en these defic ienci es. Other cause s of incre ased homoc ystei ne inclu de renal failu re, folat e antag onist s such as metho trexa te and pheny toin, and expos ure to nitro us oxide . Neelima hernandez J, et al., Elsie Inter n Med. 1999; 131(5 ):331 -9. Not Available [facility] [address] [place], [address], 11/18/2023 17:43:56 11/07/19 24 11/18/2023 COMPR EHENS THIAGO METAB OLIC PANEL glucose 126 mg/dL 65-99 high Fasti ng refer ence inter clary For someo ne witho ut known diabe nghia, a gluco se value >125 mg/dL indic ates that they may have diabe nghia and this shoul d be confi rmed with a follo w-up test. Not Available [facility] [address] [address] [address] [place], [address], 11/18/2023 17:43:56 11/07/19 24 11/18/2023 COMPR EHENS THIAGO METAB OLIC PANEL urea nitrogen (BUN) 11 mg/dL 7-25 normal Not Available [facility] [address] [address] [place], [address], 11/18/2023 17:43:56 11/07/19 24 11/18/2023 COMPR EHENS THIAGO METAB OLIC PANEL creatinine 0.85 mg/dL 0.60-0 .95 normal Not Available [facility] [address] [address] [place], [address], 11/18/2023 17:43:56 11/07/19 24 11/18/2023 COMPR EHENS HTIAGO METAB OLIC PANEL eGFR 67 mL/mi n/1.7 3m2 > or = 60 normal Not Available [facility] [address] [address] [place], [address], 11/18/2023 17:43:56 11/07/19 24 11/18/2023 COMPR EHENS THIAGO METAB OLIC PANEL BUN/creatini ne ratio SEE NOTE: (calc ) 6-22 Not Repor mery: BUN and Creat inine are withi n refer ence range . Not Available [address], [address], 11/18/2023 17:43:56 11/07/19 24 11/18/2023 COMPR EHENS THIAGO METAB OLIC PANEL sodium 139 mmol/ L 135-14 6 normal Not Available [address], [address], 11/18/2023 17:43:56 11/07/19 24 11/18/2023 COMPR EHENS THIAGO METAB OLIC PANEL potassium 4.1 mmol/ L 3.5-5. 3 normal Not Available [address], [address], 11/18/2023 17:43:56 11/07/19 24 11/18/2023 COMPR EHENS THIAGO METAB OLIC PANEL chloride 101 mmol/ L 98-110 normal Not Available [address], [address], 11/18/2023 17:43:56 11/07/19 24 11/18/2023 COMPR EHENS THIAGO METAB OLIC PANEL carbon dioxide 29 mmol/ L 20-32 normal Not Available [address], [address], 11/18/2023 17:43:56 11/07/19 24 11/18/2023 COMPR EHENS THIAGO METAB OLIC PANEL calcium 9.9 mg/dL 8.6-10 .4 normal Not Available [address], [address], 11/18/2023 17:43:56 11/07/19 24 11/18/2023 COMPR EHENS THIAGO METAB OLIC PANEL protein, total 6.4 g/dL 6.1-8. 1 normal Not Available [address], [address], 11/18/2023 17:43:56 11/07/19 24 11/18/2023 COMPR EHENS THIAGO METAB OLIC PANEL albumin 4.0 g/dL 3.6-5. 1 normal Not Available [address], [address], 11/18/2023 17:43:56 11/07/19 24 11/18/2023 COMPR EHENS THIAGO METAB OLIC PANEL globulin 2.4 g/dL_ (calc ) 1.9-3. 7 normal Not Available [address], [address], 11/18/2023 17:43:56 11/07/19 24 11/18/2023 COMPR EHENS THIAGO METAB OLIC PANEL albumin/glob ulin ratio 1.7 (calc ) 1.0-2. 5 normal Not Available [address], [address], 11/18/2023 17:43:56 11/07/19 24 11/18/2023 COMPR EHENS THIAGO METAB OLIC PANEL bilirubin, total 0.8 mg/dL 0.2-1. 2 normal Not Available [address], [address], 11/18/2023 17:43:56 11/07/19 24 11/18/2023 COMPR EHENS THIAGO METAB OLIC PANEL alkaline phosphatase 64 U/L 37-153 normal Not Available [facility] [employer] [address], [address], 11/18/2023 17:43:56 11/07/19 24 11/18/2023 COMPR EHENS THIAGO METAB OLIC PANEL AST 13 U/L 10-35 normal Not Available [facility] [address] [address] [place], [address], 11/18/2023 17:43:56 11/07/19 24 11/18/2023 COMPR EHENS THIAGO METAB OLIC PANEL ALT 6 U/L 6-29 normal Not Available [facility] [address] [address] [place], [address], 11/18/2023 17:43:56 11/07/19 24 11/18/2023 VITAM IN D,25- OH,TO TAQUERIA,I A vitamin D,25-oh,tota l,ia 55 NG/mL 30-100 normal Vitam in D Statu s 25-OH Vitam in D: Defic iency : <20 ng/mL Insuf ficie ncy: 20 - 29 ng/mL Optim al: > or = 30 ng/mL For 25-OH Vitam in D testi ng on patie nts on D2-hall pplem entat ion and patie nts for whom quant itati on of D2 and D3 fract ions is requi red, the [facility](TM ) 25-OH VIT D, (D2,D 3), LC/MS /MS is recom tahira d: order code 21315 (norbert ents >2yrs ). See Note 1 Note 1 For addit ional infor manny gray refer to http: //david Johnson gnost ics.c om/fa q/FAQ 199 (This link is being provi ded for infor dee dee alvarez/ almaz juarez purpo ses only. ) Not Available [facility] [address] [address] [address] [place], [address], 11/18/2023 17:43:57 11/07/19 24 11/18/2023 TSH TSH 1.85 mIU/L 0.40-4 .50 normal Not Available [facility] [address] [address] [place], [address], 11/18/2023 17:43:58 11/07/19 24 11/18/2023 T4, FREE T4, free 1.2 NG/dL 0.8-1. 8 normal Not Available [facility] [address], [address], 11/18/2023 17:43:58 11/07/19 24 11/18/2023 T3, FREE T3, free 3.2 pg/mL 2.3-4. 2 normal Not Available [facility] [address], [address], 11/18/2023 17:43:59 11/07/19 24 11/18/2023 T3, TOTAL T3, total 89 NG/dL 76-181 normal Not Available [facility] [address], [address], 11/18/2023 17:43:59 11/07/19 24 11/18/2023 T3 REVER SE, LC/MS /MS T3 reverse, lc/MS/MS 29 NG/dL 8-25 high This test was devel shiva and its ghassan tical perfo rmanc e awais cteri stics have been deter mined by [facility]. It has not been clear ed or appro cande by FDA. This assay has been valid ated pursu ant to the CLIA regul ation s and is used for clini светлана purpo ses. Not Available [facility] [address], [address], 11/18/2023 17:43:59 11/07/19 24 11/18/2023 CBC (INCL UDES DIFF/ PLT) white blood cell count 7.0 thous and/u L 3.8-10 .8 normal Not Available [facility] [address], [address], 11/18/2023 17:44:00 11/07/19 24 11/18/2023 CBC (INCL UDES DIFF/ PLT) red blood cell count 3.57 kaitlin on/uL 3.80-5 .10 low Not Available [facility] [address], [address], 11/18/2023 17:44:00 11/07/19 24 11/18/2023 CBC (INCL UDES DIFF/ PLT) hemoglobin 13.1 g/dL 11.7-1 5.5 normal Not Available [address], [address], 11/18/2023 17:44:00 11/07/19 24 11/18/2023 CBC (INCL UDES DIFF/ PLT) hematocrit 39.8 % 35.0-4 5.0 normal Not Available [address], [address], 11/18/2023 17:44:00 11/07/19 24 11/18/2023 CBC (INCL UDES DIFF/ PLT) MCV 111.5 fL 80.0-1 00.0 high Not Available [address], [address], 11/18/2023 17:44:00 11/07/19 24 11/18/2023 CBC (INCL UDES DIFF/ PLT) MCH 36.7 pg 27.0-3 3.0 high Not Available [address], [address], 11/18/2023 17:44:00 11/07/19 24 11/18/2023 CBC (INCL UDES DIFF/ PLT) MCHC 32.9 g/dL 32.0-3 6.0 normal Not Available [address], [address], 11/18/2023 17:44:00 11/07/19 24 11/18/2023 CBC (INCL UDES DIFF/ PLT) RDW 10.5 % 11.0-1 5.0 low Not Available [address], [address], 11/18/2023 17:44:00 11/07/19 24 11/18/2023 CBC (INCL UDES DIFF/ PLT) platelet count 295 thous and/u L 140-40 0 normal Not Available [address], [address], 11/18/2023 17:44:00 11/07/19 24 11/18/2023 CBC (INCL UDES DIFF/ PLT) MPV 8.5 fL 7.5-12 .5 normal Not Available [address], [address], 11/18/2023 17:44:00 11/07/19 24 11/18/2023 CBC (INCL UDES DIFF/ PLT) absolute neutrophils 5243 cells /uL 1500-7 800 normal Not Available [address], [address], 11/18/2023 17:44:00 11/07/19 24 11/18/2023 CBC (INCL UDES DIFF/ PLT) absolute lymphocytes 1148 cells /uL 850-39 00 normal Not Available [address], [address], 11/18/2023 17:44:00 11/07/19 24 11/18/2023 CBC (INCL UDES DIFF/ PLT) absolute monocytes 427 cells /uL 200-95 0 normal Not Available [address], [address], 11/18/2023 17:44:00 11/07/19 24 11/18/2023 CBC (INCL UDES DIFF/ PLT) absolute eosinophils 140 cells /uL 15-500 normal Not Available [facility] [address], [address], 11/18/2023 17:44:00 11/07/19 24 11/18/2023 CBC (INCL UDES DIFF/ PLT) absolute basophils 42 cells /uL 0-200 normal Not Available [facility] [address], [address], 11/18/2023 17:44:00 11/07/19 24 11/18/2023 CBC (INCL UDES DIFF/ PLT) neutrophils 74.9 % normal Not Available [address], [address], 11/18/2023 17:44:00 11/07/19 24 11/18/2023 CBC (INCL UDES DIFF/ PLT) lymphocytes 16.4 % normal Not Available [address], [address], 11/18/2023 17:44:00 11/07/19 24 11/18/2023 CBC (INCL UDES DIFF/ PLT) monocytes 6.1 % normal Not Available [address], [address], 11/18/2023 17:44:00 11/07/19 24 11/18/2023 CBC (INCL UDES DIFF/ PLT) eosinophils 2.0 % normal Not Available [address], [address], 11/18/2023 17:44:00 11/07/19 24 11/18/2023 CBC (INCL UDES DIFF/ PLT) basophils 0.6 % normal Not Available [address], [address], 11/18/2023 17:44:00 11/07/19 24 11/18/2023 VITAM IN B12/F OLATE , SERUM PANEL vitamin B12 176 pg/mL 200-11 00 low Not Available [address], [address], 11/18/2023 17:44:00 11/07/19 24 11/18/2023 VITAM IN B12/F OLATE , SERUM PANEL folate, serum 10.1 NG/mL normal Refer ence Range Low: <3.4 Borde rline : 3.4-5 .4 Cynthia l: >5.4 Not Available [place] [address] [place], [address], 11/18/2023 17:44:00 11/07/19 24 11/18/2023 C TELOP EPTID E (CTX) C telopeptide (ctx) 256 pg/mL Refer ence Range : NOT ESTAB LISHE D Adult Femal e Refer ence Range s for C-Tel opept vazquez (CTx) : 18-29 years : 64-64 0 pg/mL 30-39 years : 60-65 0 pg/mL 40-49 years : 50-46 5 pg/mL >49 years : Not Estab lishe d No refer ence range is provi ded for postm enopa usal women becau se of the incre ased rate of bone turno walter post- menop ause. It is recom tahira d that resul ts for postm enopa usal women be terrance red to the preme nopau gal refer ence range as this will give a anabelle r indic ation of their rate of bone loss. For addit ional infor manny gray refer to http: //[facility] jan kahn.que stdia gnost ics.c om/fa q/FAQ (This link is being provi ded for infor dee dee nal/e raji iontiffanie purpo ses only. ) Not Available [facility] [address] [address] [place], [address], 11/18/2023 17:44:01 11/07/19 24 11/18/2023 INSUL IN insulin 5.3 uIU/m L normal Refer ence Range < or = 18.4 Risk: Optim al < or = 18.4 Moder ate NA High >18.4 Adult cardi ovasc ular event risk categ ory cut point s (opti mal, moder ate, high) are based on Insul in Refer ence Inter clary studi es [facility] at [facility] in 2021. Not Available [facility] [facility] [address] [place], [address], 11/18/2023 17:44:01 11/07/19 24 11/18/2023 MAGNE SIUM, RBC magnesium, RBC 4.4 mg/dL 4.0-6. 4 (Note ) This test was devel oped and its ghassan tical perfo rmanc e awais cteri stics have been deter mined by [facility]. It has not been clear ed or appro cande by the FDA. This assay has been valid ated pursu ant to the CLIA regul ation s and is used for clini светлана purpo ses. MDF med fusio n [address] [facility] [address] [facility] [place] [address] [phone] Francisco Cameron MD, PhD Not Available [employer] [facility] [address] [address], [place], [address], 11/18/2023 17:44:02 10/04/19 24 10/04/2023 US, echoc ardio gram No observ ation record ed. [email or web address] [facility] [address] , [place], [address], 10/21/2023 13:44:58 10/05/19 24 10/04/2023 US, duple x, carot id arter y No observ ation record ed. [email or web address] [facility] [address] , [place], [address], 10/07/2023 10:49:30 Result Notes None recorded. Problems Name Problem SNOMED Code Status Onset Date Resolution Date Notes Provider Name and Address Organization Details Recorded Time Celiac disease 609467378 Active 2023 Vazquez Dior MD [address] , [place], [address], [place] Cued 4 09:05:02 Arterioscle rotic vascular disease 52884923 Active [address], [place], [address], [place] Cued 4 10:22:30 Aortic valve stenosis 75514720 Active [address], [place], [address], Cued 4 10:22:43 Malignant tumor of breast 723241005 Active 2023 likely - pt refuses workup, mass is palpable and non tender Vazquez Dior MD [address], [place], [address], Cued 4 10:23:13 Essential hypertensio n 06027313 Active 2023 Vazquez Dior MD [address], [place], [address], Cued 4 17:40:08 Problem Notes None recorded. Procedures Surgical History Date Name Laterality Status Provider Name and Address Organization Details Recorded Time Blood Draw completed Ciara Bhakta [facility] 11/08/2023 11:03:30 Bone Scan - DEXA completed Vazquez Dior MD [address], [place], [address], Cued 09/16/2023 11:40:40 Mammogram completed Vazquez Dior MD [address], [place], [address], Cued 09/16/2023 11:40:40 Imaging Results Imaging Date Name Status LastModified by Organization Details LastModified Time 10/04/2023 US, [email or web address] [address], [place], [address], 10/21/2023 13:44:58 10/04/2023 US, duplex, carotid artery completed [email or web address] [facility] [address], [place], [address], 10/07/2023 10:49:30 Procedure Notes None recorded. Medical Equipment None Reported. Allergies Allergen ID Allergen Name Allergen Category Reaction Reaction Severity Criticality Documentation Date Start Date Code Code System Note Provider Name and Address Organization Details Recorded Time 88279 Product containin g penicilli n (product) medicatio n other Not available Not available 09/16/2023 67181 8001 SNOMED Vazquez Dior MD [address], [place], [address], Cued 4 11:40:38 Medications Name Sig Start Date Stop Date Status Note LastModified by Organization Details LastModified Time losartan 50 mg tablet TAKE 1 TABLET TWICE A DAY BY ORAL ROUTE FOR 90 DAYS. active Not Available Not Available No t Available paroxetine 10 mg tablet TAKE 1 TABLET BY MOUTH EVERY DAY active Not Available Not Available No t Available donepezil 5 mg tablet TAKE 1 TABLET BY MOUTH EVERY DAY active Not Available Not Available No t Available alendronate 70 mg tablet Take 1 tablet every week by oral route. active Not Available Not Available No t Available amlodipine 5 mg tablet TAKE 1 TABLET BY MOUTH EVERY DAY active Not Available Not Available No t Available losartan 25 mg tablet TAKE 2 TABLET BY MOUTH TWO TIMES A DAY active CLARISA 09/20/23 . NOV 10/30/23 . Refill for 6 months -KL Not Available Not Available Not Available rosuvastati n 20 mg tablet TAKE 1 TABLET BY MOUTH EVERY DAY active Not Available Not Available No t Available diclofenac 1 % topical gel APPLY 2 G TOPICALLY TWICE A DAY active Not Available Not Available No t Available Vitals Date Recorded Body weight Heart rate Oxygen saturation Oxygen saturation in Arterial blood by Pulse oximetry Systolic blood pressure Diastolic blood pressure Provider Name and Address Organization Details Last Updated DateTime 4 284[address].5 g 101 /min 96 % 96 % 182 mm[Hg] 92 mm[Hg] Priscilla Mao Cued 4 09:12:06 Social History Question Answer Notes LastModified by Organizat ion Details LastModified Time Tobacco Smoking Status Former Smoker Vazquez Dior MD [address], [place], [address], Cued 09/16/2023 11:40:39 Have There Been Any Changes To Your Family Or Social Situation? Yes Information not available 09/16/2023 How Many Children Do You Have? 0 Information not available 09/16/2023 Do You Have Any Pets? No Information not available 09/16/2023 Do You Have Any Siblings? 2 Information not available 09/16/2023 Are There Any Smokers In Your House? No Information not available 09/16/2023 How Much Tobacco Do You Smoke? 1 PPW Information not available 09/16/2023 How Many Years Have You Smoked Tobacco? 10 Information not available 09/16/2023 Sex: Unknown Functional Status Question Answer Note LastModified by Organization D etails LastModified Time What is your level of alcohol consumption? Heavy Information not available 09/16/2023 Mental Status None recorded. Family History Relationship Description Onset Age of this Age Resolved Age Notes LastModified by Organization Details LastModified Time Mother Family history of malignant neoplasm hroca Not available 2023 11:40:39 Mother Diabetes mellitus hroca Not available 2023 11:40:39 Brother Hypercholest erolemia hroca Not available 2023 11:40:39 Brother Myocardial infarction hroca Not available 09/15 11:40:39 Brothe [id number]|2024-08-23 14:32:33|2024-08-23 14:32:33|ED.FALL||||"HPI - Fall General Chief Complaint: Fall Stated Complaint: fall Time Seen by Provider: 08/23/24 13:46 Source: patient and family Mode of arrival: EMS Limitations: dementia History of Present Illness HPI Narrative: Patient presents after a ground level fall. She has had a few falls recently including recently breaking her left patella for which her left leg is now in a knee immobilizer. She was sitting outside in a chair to enjoy the nice weather today she got up and fell. Is unclear whether she fell due to mechanical reasons, tripping/stumbling, pain/weakness, or other causes. Patient denies loss of consciousness as she remembers the entire incident. She is not on any anticoagulation. Her tetanus status is unknown. She took no pain medications prior to arrival. She sustained a laceration to the back of her head and she notes that she has pain there as well as a mild headache however she denies any neck pain. Family notes that she has been slurring her speech and they are also concerned about her blood pressure given that she did not take her medication for this today. Related Data Allergies Allergy/AdvReac Type Severity Reaction Status Date / Time aspirin Allergy Unknown Verified 03/04/17 15:08 Penicillins Allergy Unknown Verified 03/07/12 12:08 [facility] Past Medical History Medical History Celiac disease Depression High blood pressure Memory deficit Hard of hearing Breast cancer Family History Family History (Updated 03/07/12 @ 12:11 by DOCTOR UNKNOWN) Other Family history of malignant neoplasm Hypertension Social History Social History Social History: POLST signed 10/17/2023 lists DNR/No CPR (comfort-focused treatment) Smoking status: Former smoker Alcohol intake: current Living arrangements: assisted living Additional living arrangements comments: [place] since 09/05/2023 Occupation/Education: 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 HEAD: 2 cm linear laceration along posterior aspect of scalp, bleeding well controlled. EYES: Non injected, non icteric ENT: Nares clear, no rhinorrhea or epistaxis. Hard of hearing but can understand when spoken to at close range and loudly with mask off. NECK: Supple. CHEST: Speaking in full sentences. No respiratory distress. HEART: Tachycardic rate and rhythm. . ABDOMEN: Soft, nondistended. EXTREMITIES: Normal range of motion. Left knee immobilizer. Right elbow centimeter superficial abrasion, no active bleeding as well as faint ecchymosis but no obvious bony deformity. SKIN: Warm, dry; lac as above NEURO: No focal deficits. Alert and oriented to self. PSYCH: Normal mood and affect. Course Vital Signs Vital signs: Vital Signs Temperature 98.2 F 08/23/24 13:21 Pulse Rate 102 H 08/23/24 13:21 Respiratory Rate 19 08/23/24 13:21 Blood Pressure 153/77 H 08/23/24 13:21 Pulse Oximetry 97 08/23/24 13:21 Oxygen Delivery Room Air 08/23/24 13:21 Temperature 98.2 F 08/23/24 13:21 Pulse Rate 68 08/23/24 16:57 Respiratory Rate 18 08/23/24 16:57 Blood Pressure 162/84 H 08/23/24 16:57 Pulse Oximetry 100 08/23/24 16:57 Oxygen Delivery Room Air 08/23/24 13:21 Procedures Laceration Laceration 1: Date: 08/23/24 Time: 14:40 Site: scalp Size (cm): 2 Description: linear Depth: simple, single layer Local Anesthetic: none Pre-repair: wound explored and irrigated ====== Skin Level ====== Skin layer closed with: malgorzata Number of sutures: 3 Technique: simple, interrupted ====== Subcutaneous Layer ====== ====== Muscle Layer ====== ====== Tendon Layer ====== MDM - Fall MDM Narrative Medical decision making narrative: Patient presents after a ground level fall. In the emergency department she is afebrile vital signs notable for hypertension and mild tachycardia. Tetanus updated. Patient has had multiple falls, 4 since May according to family members. I did discuss with the family the degree of work up to proceed with today given this, including lab work, EKG, CXR, etc. to see if patient is anemic, has electrolyte abnormalities, arrhythmia, pneumonia or other infection. They note that these would not foreign exchange trader as patient has previously refused to intervene on such abnormalities. In addition, they note the patient has breast cancer and is refusing further treatment or workup for this issue and related sequelae. However, they do think patient should be checked for a UTI. Medications are reviewed but patient is not on anticoagulation. Urinalysis did not automatically reflex to culture, likely due to squamous cells. However, there is significant pyuria, bacteriuria, and leukocyte esterase and for this reason there is strong of suspicion for urinary tract infection. Urine cultures ordered and I did speak with lab to process that. No previous urine culture to guide antibiotic therapy. Will give Bactrim and discharge with the same. Also prescribed OTC APAP and NSAID. Advised on staple removal and follow up. Differential Diagnosis Differential diagnosis: Likely syncope, compression fracture, concussion with loss of consciousness, concussion without loss of consciousness and other (Intracranial bleeding, infection including pneumonia, urinary tract infection, symptomatic anemia, electrolyte abnormalities, advancing disease; skull/vertebral fracture; elbow fracture/dislocation; laceration) Lab Data Attestation: I reviewed the patient's lab results. Labs: Lab Results 08/23/24 Range/Units 15:36 Urine Color Yellow (Yellow) Urine Appearance Cloudy H (Clear) Urine pH 7.0 (5.0-9.0) Ur Specific Stanley 1.012 (1.001-1.035) Urine Protein Trace (Negative) mg/dL Urine Glucose (UA) Negative (Negative) mg/dL Urine Ketones Negative (Negative) mg/dL Ur Blood (Man) Negative (Negative) Urine Nitrate Negative (Negative) Urine Bilirubin Negative (Negative) Urine Urobilinogen 0.2 (<2.0) mg/dL Add Ur Microanalysis Reviewed Leukocyte Esterase Rfl 3+ H (Negative) KEVIN/UL Urine RBC 0-2 (0-2) /hpf Urine WBC 51-100 H (0-3) /hpf Ur Squamous Epith Cells Many H (Few) /hpf Urine Bacteria 2+ H /hpf Urine Casts 11-20 Imaging Data Radiologist's impression: Impression: No acute intracranial hemorrhage or suspicious mass effect. Impression: Straightening and slight reversal of the normal curvature of the cervical spine, likely muscular in origin. Severe degenerative disease, without acute fracture. IMPRESSION: No acute fracture or dislocation, as detailed above Discharge Plan Discharge Clinical Impression: Fall from ground level, Laceration of scalp, Tetanus-diphtheria vaccination administered at current visit, Degenerative disc disease, cervical, UTI (urinary tract infection), Traumatic ecchymosis of right elbow, Abrasion of elbow, right Patient Disposition: NH Skilled Nursing/Asst Living Condition: Stable Instructions: Antibiotic Form, Fall Prevention for Older Adults (ED), Abrasion (ED), Staple Care (ED), Degenerative Disc Disease (ED), Ecchymosis (ED), Urinary Tract Infection in Older Adults (ED), Head Laceration (ED) Additional Instructions: You had 3 malgorzata placed which will need to be removed in approximately 7 days. This can be done at primary care physician's, urgent care, or by returning to the ED. Your tetanus shot was given/updated today. Acetaminophen/Tylenol (maximum 4000 mg per day) is safe to take with NSAIDs (ibuprofen/Motrin) for pain relief. You have evidence of urinary tract infection. You received your 1st dose of antibiotic in the emergency department the rest the course prescribed. Follow-up with your primary care physician. If you are unable follow-up with that provider, the name of another 1 is listed below. Return to the emergency department any new, worsening, unmanaged symptoms. Patient Language: Georgian Prescriptions: New sulfamethoxazole-trimethoprim [Bactrim DS] 800-160 mg tablet 1 tablet PO Q12H 5 Days Qty: 9 0RF Rx Instructions: received first dose in ED 08/23 PM, start next dose 08/24 AM ibuprofen 600 mg tablet 600 mg PO TID PRN (Reason: pain) Qty: 30 0RF acetaminophen 500 mg capsule 1,000 mg PO Q6H PRN (Reason: pain) Qty: 30 0RF Follow-up/Referrals: Vazquez Dior [Other] (per asst living documentation) PHYSICIAN NOT ON STAFF,NONSTAFF [Primary Care Provider] - Misbah Tamayo MD [Physician] - Stand Alone Forms: Senior Living Discharge Time of Disposition: 16:13"
--- OUTSIDE RECORDS SUMMARY | 2024-08-23 13:56 | XMS_ITS | Encounter Summary ---
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
--- OUTSIDE RECORDS SUMMARY | 2024-08-23 13:56 | XMS_ITS | Clinical Summary ---
Author Organization [facility] [address] [place] [address] [place] [id number] Care Team Providers Care Printed Forms Proofreader Name Role Phone Lucien Choudhary MD Primary Care Provider [phone] Allergies Active Allergy Reactions Criticality Noted Date Comments Aspirin Other (See Comments) 11/29/2010 Stomach ache; pt states she cannot tolerate the Nicole aspirin in higher doses Penicillins Unknown Medium 09/08/2010 Medications PARoxetine HCl (PAXIL) 20 mg Oral tablet Take 20 mg by mouth daily. 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 Active CHOLECALCIFEROL, VITAMIN D3, (VITAMIN D-3 ORAL)Indications:Ma lignant neoplasm of lower-outer quadrant of female breast (CMS/HCC),Encounter for antineoplastic chemotherapy Take by mouth. Active aspirin (BABY ASPIRIN) 81 mg Oral ChewIndications:Mal ignant neoplasm of lower-outer quadrant of female breast (CMS/HCC),Encounter for antineoplastic chemotherapy Take 81 mg by mouth daily. Active VITAMIN B COMPLEX ORALIndications:Mal ignant neoplasm of lower-outer quadrant of female breast (CMS/HCC),Encounter for antineoplastic chemotherapy Take by mouth. Active CYANOCOBALAMIN, VITAMIN B-12, (VITAMIN B-12 ORAL) Take by mouth. Active valsartan (DIOVAN) 80 mg Oral tablet Take 80 mg by mouth daily. Active ALFALFA ORAL Take by mouth. Active GARLIC ORAL Take by mouth. Active Active Problems Patient Care Coordination No te Formatting of this note migh t be different from the original. 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 0 2006, clinically stage I 201009/08/2010 Overview (02/09/2011): Left Breast 2006: ICD9 174.5 (LOQ) ER/MI(-) DCIS Lumpectomy ([place]) RT: 08/08-08/14/06 MammoSite HDR Brachy 3400 cGy in 340 cGy x 10 fx bid 2010: ICD9 174.4 (UOQ - 4.5 cm away from 1st cancer) Clinical Stage I Pathologic Stage yTx yN0 ER/MI(-) G3 IDC Med Onc ([facility]): Neoadjuvant FEC x 3 & Taxotere x 3 Lumpectomy/SLN (02/05/11 - [place]): pCR, 0/1 SLN Breast Cancer left 2010 cT1N0 pT0N0 09/08/2010 Overview (04/28/2013): 07/18/06 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 & MammoSite HDR Brachy (August 2006) 09/05/10 Stage LABC ( Tx Nx Mx) IDC LEFT breast TRIPLE NEGATIVE Ki67 94% Plan: neoadjuvant Clinically stage 1 (14mm by u/s) T1N0 H/O: depression 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 7 BCT Overview (01/16/2011): Breast conservation, DCIS, ER negative, MI negative, November 2006.Stage 0 Invasive ductal carcinoma of breast Family History Medical History Relation Name Comments Breast Cancer Maternal Cousin Chayo dx age 60's Colon Cancer Mother Breast Cancer Paternal Aunt 1 dx age 70's Breast Cancer Paternal Aunt 2 dx age 50's Breast Cancer Paternal Cousin 1 Yanci BRCA pos (rx Siteman) Ovarian Cancer Paternal Cousin 2 Geno Breast Cancer Paternal Cousin 3 Kiera young age Healthy Paternal Cousin 4 BRCa neg Healthy Paternal Cousin 5 BRCA neg Ovarian Cancer Paternal Cousin 6 cousin S ondra's daughter BRCA pos Breast Cancer Paternal Grandmother dx age 50's Heart Disease Paternal Grandmother Uterine Cancer Neg Hx Relation Name Status Comments Brother Alive Father Maternal Cousin Chayo Alive Mother Paternal Aunt 1 Paternal Aunt 2 Paternal Cousin 1 Yanci Alive Paternal Cousin 2 Geno Alive Paternal Cousin 3 Kiera Alive Paternal Cousin 4 Paternal Cousin 5 Paternal Cousin 6 Paternal Grandmother Sister Alive Social History Tobacco Use Types Packs/Day Years Used Date Smoking Tobacco: Former Smokeless Tobacco: Never Tobacco Cessation:Counseling Given: No Comments:1992 Alcohol Use Standard Drinks/Week Comments Yes 5.8 (1 standard drink = 0.6 oz p ure alcohol) 1 glass of wine per day Comments No Sex and Gender Information Value Date Recorded Sex Assigned at Not on file Legal Sex Female 5:39 AM ASSISTANT CENTER DIRECTOR Gender Identity Not on file Sexual Orientation Not on file Occupation Industry Job Start Date Job End Date Not on file Not on file Not on file Not on file Not on file Not on file Not on file Not on file Not on file Not on file Not on file Not on file Last Filed Vital Signs Vital Sign Reading Time Taken Comments Blood Pressure 170/104 12/29/2014 12:46 PM CDT Pulse 105 12/29/2014 12:46 PM CDT Temperature 36.8 C (98.2 F) 11/11/2013 2:48 PM CDT Respiratory Rate 24 02/12/2012 11:09 AM ASSISTANT CENTER DIRECTOR Oxygen Saturation 97% 02/05/2011 12:17 PM CDT Inhaled Oxygen Concentration - - Weight 59.4 kg (131 lb) 12/29/2014 12:46 PM CDT Height 167.6 cm (5' 6 ) 12/29/2014 12:46 PM CDT Body Mass Index 21.14 12/29/2014 12:46 PM CDT Plan of Treatment Health Maintenance Due Date Last Done Comments DTAP/TDAP/TD VACCINES (1 - Tdap) 1954 PNEUMOCOCCAL VACCINE 50+ YEARS (1 of 1 - PCV) 11/30/18 88 ZOSTER VACCINE (1 of 2) 12/01/1987 OSTEOPOROSIS SCREENING 2002 RSV VACCINE (60+ or ) (1 - 1-dose 75+ series) 2012 INFLUENZA VACCINE (#1) 2023 Medical Devices Implanted Type Area Hotel Houseman Device Identifier Shelf Expiration Date Model / Serial / Lot Port Pwrprt Mri 8fr [id number] - [id number] Implanted:Qty : 1 on 09/28/2010 [place] [facility] [place]: Subclavian CR BARD- ACCESS SYS 05/31/2012 [id number] / [id number] / [id number] Insurance BCBS MEDICARE Advance Directives For more information, please contact: [phone] * Full Code (Latest Code Status on File) Date Activated Date Inactivated Comments 02/05/2011 6:42 AM 02/05/2011 2:29 PM * Full Code Date Activated Date Inactivated Comments 09/28/2010 8:18 AM 09/28/2010 1:59 PM Care Teams Printed Forms Proofreader Relationship Specialty Start Date End Date Lucien Choudhary MD [address] [facility] [address] [place] [address] PCP - General 03/23/08
--- OUTSIDE RECORDS SUMMARY | 2024-08-23 13:56 | XMS_ITS | Referral Summary ---
Author Organization [facility] Address [address] [place] [id number] Care Team Providers Care Eap Counselor Name Role Phone Ovi MONTEIRO MD, Vazquez Phillips Primary Care Provider Encounters Date Type Department Care Team Description 08/13/2024 11:15 AM CDT Office Visit [facility] Sports Medicine and Primary Care at [address] [place] [address] Lucien Mendez DO Displaced comminuted fracture of left patella, initial encounter for closed fracture (Primary Dx) 08/11/2024 Telephone [facility] Orthopedics and Sports Medicine [address] [facility] [address] [address] [facility] [place], [place] 08/10/2024 Results Follow-Up [facility] at [address] [address] Jennifer Garcia, MACARENA XR Knee Left 3 Views 08/10/2024 4:00 PM CDT Ancillary Procedure [facility] Imaging at [address] [address] Fall, initial encounter 08/10/2024 3:45 PM CDT Office Visit [facility] at [address] [address] Jennifer Garcia NP Fall, initial encounter (Primary Dx); Closed displaced fracture of left patella, unspecified fracture morphology, initial encounter 07/27/2024 Results Follow-Up [facility] at [address] [address] Jennifer Garcia, MACARENA XR Knee Left 4 or More Views 07/27/2024 2:35 PM CDT Ancillary Procedure [facility] Imaging at [address] [address] Acute pain of left knee 07/27/2024 2:30 PM CDT Office Visit [facility] at [address] [address] Jennifer Garcia, MACARENA Acute pain of left knee (Primary Dx); Closed nondisplaced fracture of left patella, unspecified fracture morphology, initial encounter 06/19/2024 11:45 AM CDT Ancillary Procedure [facility] Imaging at [address] [address] 06/19/2024 11:15 AM CDT Office Visit [facility] Sports Medicine and Primary Care at [address] [address] Lucien Mendez DO Closed nondisplaced fracture of third metatarsal bone of right foot with routine healing, subsequent encounter (Primary Dx) 06/04/2024 11:15 AM FINAL CLEANER Ancillary Procedure [facility] Imaging at [address] [address] Acute left ankle pain 06/04/2024 10:35 AM FINAL CLEANER Ancillary Procedure [facility] Imaging at [address] [address] Closed nondisplaced fracture of third metatarsal bone of right foot, initial encounter 06/04/2024 10:45 AM FINAL CLEANER Office Visit [facility] Sports Medicine and Primary Care at [address] [address] Lucien Mendez DO Closed nondisplaced fracture of third metatarsal bone of right foot with routine healing, subsequent encounter (Primary Dx); Acute left ankle pain from Last 3 Months Allergies Active Allergy Reactions Criticality Noted Date [...] eye 3 (three) times a day Active Tabernash's wort 150 mg capsuleIndicat ions:for supplement Take by mouth 2 (two) times a day Active ixpzahew-tjw-a hondr-vit C-hyal [id number] mg tabletIndicati ons:for supplement Take by mouth [...] losartan 25 mg tablet 08/11/19 25 Discontin ued(Thera py completed ) Active Problems Problem Noted Date Diagnosed Date DCIS (ductal carcinoma in situ) 02/15/2023 Overview (02/15/2023): Breast conservation, DCIS, ER negative, ID negative, November 2006.Stage 0 H/O: depression 02/15/2023 [...] 07/07/2018 Assessment & Plan (03/02/2020 11:51 AM FINAL CLEANER): Stable exam. Trouble with near-vision, may be [...] (02/15/2023): 07/18/06 LEFT breast DCIS int grade ER-ID- S/p lumpectomy & MammoSite HDR Brachy (August 2006) 09/05/10 Stage LABC ( Tx Nx Mx) IDC LEFT breast TRIPLE NEGATIVE Ki67 94% Plan: neoadjuvant Clinically stage 1 (14mm by u/s) T1N0 Malignant neoplasm of breast 09/07/2010 Social History Tobacco Use Types Packs/Day Years [...] on file Legal Sex Female 8:43 PM FINAL CLEANER Gender Identity Not on file Sexual Orientation Not on file Last Filed Vital Signs [...] 08/13/2024 11:11 AM CDT Plan of Treatment Not on file Medical Devices Implanted Type Area Snuff Blender Device Identifier Shelf Expiration Date Model / Serial / Lot [employer] [id number] Tecnis Protec Tecnis Itec 6mm 13mm 1 Piece Anterior Aspheric - [id number] - [id number] Implanted:Qty: 1 on 04/23/2018 by Kareem Chapman MD at [facility] [employer] [id number] 11/23/2020 [id number] / [id number] / [employer] [id number] Tecnis Protec Tecnis Itec 6mm 13mm 1 Piece Anterior Aspheric - [id number] - [id number] Implanted:Qty: 1 on 05/14/2018 by Kareem Chapman MD at [facility] [employer] Left: Eye [employer] [id number] 01/21/2021 [id number] / [id number] / 0 Procedures Procedure Name Priority Date/Time [...] Read Routine (OP Routine) 06/04/2024 11:20 AM FINAL CLEANER Acute left ankle pain XR FOOT RIGHT 3 OR MORE VIEWS Schedule Routine, Read Routine (OP Routine) 06/04/2024 10:46 AM FINAL CLEANER Closed nondisplaced fracture of third metatarsal bone [...] signed by Geraldo LAWSON T: Report ID: [id number] Reading Location: [id number] Procedure Note Geraldo Traore MD - 08/10/2024 [...] signed by Geraldo LAWSON T: Report ID: [id number] Reading Location: [id number] Jennifer Garcia NP IMG XR PROCEDURES Final [...] Donald Rivera M.D. MZ T: Report ID: [id number] Reading Location: [id number] Procedure Note Donald Rivera MD - 07/27/2024 [...] Donald Rivera M.D. MZ T: Report ID: [id number] Reading Location: [id number] Jennifer Garcia NP IMG XR PROCEDURES Final [...] 1:11 PM - Electronically signed by Lucien THIBODEAUX T: Report ID: [id number] Reading Location: [id number] Procedure Note Lucien Swartz MD - 06/25/2024 [...] by Lucien Swartz M.D. T: Report ID: [id number] Reading Location: [id number] Lucien Mendez DO IMG XR PROCEDURES Gloria l Result * XR Ankle Left 3 or More Views (06/04/2024 11:20 AM FINAL CLEANER) Anatomical Region Laterality Modality Lower Extremities, Ankle Left Digital Radiography 06/07/2024 8:12 PM FINAL CLEANER Narrative 06/07/2024 8:16 PM FINAL CLEANER EXAM DESCRIPTION: XR ANKLE LEFT 3 OR [...] by Lucien Swartz M.D. T: Report ID: [id number] Reading Location: [id number] Procedure Note Lucien Swartz MD - 06/07/2024 [...] by Lucien Swartz M.D. T: Report ID: [id number] Reading Location: [id number] Lucien Mendez DO IMG XR PROCEDURES Gloria l Result * XR Foot Right 3 or More Views (06/04/2024 10:46 AM FINAL CLEANER) Anatomical Region Laterality Modality Lower Extremities, Foot Right Digital Radiography 06/07/2024 2:02 PM FINAL CLEANER Narrative 06/07/2024 2:07 PM FINAL CLEANER EXAM DESCRIPTION: XR FOOT RIGHT 3 OR [...] Yun Sexton M.D. TW T: Report ID: [id number] Reading Location: [id number] Procedure Note Yun Sexton MD - 06/07/2024 [...] - Electronically signed by Yun Sexton M.D. T: Report ID: [id number] Reading Location: [id number] Lucien Mendez DO IMG XR PROCEDURES Gloria l Result from Last 3 Months Insurance [employer] HMO PPO [employer] HMO PPO [employer] HMO PPO [employer] HMO PPO Advance Directives For more information, please contact: [phone] * Full Code (Latest Code Status on File) Date Activated Date Inactivated Comments 05/14/2018 7:49 AM 05/14/2018 2:47 PM * Full Code Date Activated Date Inactivated Comments 04/23/2018 11:00 AM 04/23/2018 6:40 PM Care Teams Eap Counselor Relationship Specialty Start Date End Date Vazquez Dior III, MD [address] [place] [address] PCP - General Family Medicine 09/23/23
--- OUTSIDE RECORDS SUMMARY | 2024-08-23 13:56 | XMS_ITS | Encounter Summary ---
Author Organization [facility] Address [address] [place] [address] Care Team Providers Care Entry Level Manufacturing Engineer Name Role Phone Lucien Choudhary MD Primary Care Provider [phone] Encounter Details Date Type Department Care Team (Latest Contact Info) Description 02/24/2008 Outpatient Historical [facility] Radiation Oncology [place] [address] [place] [phone] Lucien Fields MD [address] [place] [address] Malignant Neoplasm of Lower-Outer Quadrant of Female Breast (CMS/HCC) Social History Tobacco Use Types Packs/Day Years Used Date Smoking Tobacco: Never Assessed Comments Unknown Sex and Gender Information Value Date Recorded Sex Assigned at Not on file Legal Sex Female 5:39 AM 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 [address] [place] [address] PCP - General 03/23/08 documented as of this encounter
--- OUTSIDE RECORDS SUMMARY | 2024-08-23 13:56 | XMS_ITS | Clinical Summary ---
Author Organization [facility] Address [facility] [place] [address] Care Team Providers Care Hoseman Name Role Phone Unavailable Primary Care Provider Unavailabl e Social History Tobacco Use Types Packs/Day Years Used Date Smoking Tobacco: Never Assessed Comments Unknown Sex and Gender Information Value Date Recorded Sex Assigned at Not on file Legal Sex Female 7:08 PM SLPS Gender Identity Not on file Sexual Orientation Not on file Plan of Treatment Health Maintenance Due Date Last Done Comments DTaP, Tdap and Td Vaccines ( 1 - Tdap) 1954 Pneumococcal Vaccine: 50+ Ye ars (1 of 1 - PCV) 12/01/1987 Zoster Vaccines (1 of 2) 12/01/1987 Annual Medicare Wellness Visit 2002 RSV Immunization or 60+ Years (1 - 1-dose 75+ series) 2012 COVID-19 Vaccine (2023-2 5 season) 2023 Meningococcal B Vaccine Aged Out No l onger eligible based on patient's age to complete this topic Meningococcal Vaccine Aged Out No aidee gianluca eligible based on patient's age to complete this topic RSV Immunizations Under 20 Months Aged Out No longer eligible based on patient's age to complete this topic Insurance [facility]
--- OUTSIDE RECORDS SUMMARY | 2024-08-23 13:57 | XMS_ITS | Data Portability ---
Author Organization [facility], Main Office Address [address] [place] [address] Assessment Encounter Date Assessment Date Assessment LastModified by Organization Details LastModified Time 01/17/2023 01/17/2023 D/w pt and her niece about her findings and further plan of care. Explained about different options of her. Will do x-rays. Pt declined for any Rx med. OTC pain meds as directed. Ice pack as directed prn. DARIO explained in detail. Advised to avoid any strenuous activities/li fting-pushing until cleared. Educated pt about alarming symptoms to monitor at home and call us back or get checked in ED. F/u in 1-2 weeks. [email or web address] Not available 01/17/2023 10:13:10 01/24/2023 01/24/2023 D/w pt and her niece about her findings and further plan of care. Cont f/u with Ortho at [facility] as per schedule. Pt declined for any Rx med. Cont OTC pain meds as directed. Ice pack as directed prn. DARIO explained in detail. Advised to avoid any strenuous activities/li fting-pushing until cleared. Educated pt about alarming symptoms to monitor at home and call us back or get checked in ED. F/u with PCP as directed. Not available 01/24/2023 15:25:18 Plan of Treatment Reminders Order Date Submit Date Provider Last Modified By Organization Details Last Modified Time Details Appointments None recorded. Lab BMP, serum or plasma [id number] 024 [facility], [address], [address] [address], [place], [address], 08:15:53 TSH, ultra-sensi tive, serum 2023 024 [facility], [address] [address], [address], [place], [address], 4 08:15:53 lipid panel, serum 2023 024 [facility], [address] [address], [address], [place], [address], 4 08:15:53 hepatic function panel, serum 2023 024 [facility], [address], [address], [place], [address], 4 08:15:53 Referral None recorded. Procedures None recorded. Surgeries None recorded. Imaging XR, hip + pelvis, unilateral, 2 or 3 view 2022 023 [email or web address] Not available 3 11:35:05 XR, ankle, 3 or more view 2022 023 HARRY Not available 3 12:46:16 XR, hand 2022 023 [email or web address] [facility], [address], [place], [address], 3 14:13:08 XR, wrist 2022 023 [email or web address] [facility], [address], [place], [address], 3 14:13:08 Medication Orders losartan 25 mg tablet 2023 024 [facility]/Pharmacy #3259, [address] [place], [address], 4 14:32:23 paroxetine 10 mg tablet 2023 024 [facility]/Pharmacy #3259, [address] [place], [address], 14:32:23 Calcium 600 + D(3) 600 mg-10 mcg (400 unit) tablet 2022 023 [email or web address] [facility]/Pharmacy #3259, [address] [place], [address], 14:28:27 alendronate 70 mg tablet 2022 023 [email or web address] [facility]/Pharmacy #3259, [address] [place], [address], 14:28:18 Patient TargetsNo targets recorded. Patient Instructions Encounter Date Encounter Id Patient Instructions Last Modified By Organization Details Last Modified Time 10/03/2022 [id number] fu 4 mo anxiety and htn Not available 10/03/2022 18:02:14 04/12/2023 [id number] Fu with new pcp. 04/12/23 pt aware of berhane departure Not available 04/12/2023 14:45:07 Reason for Referral None Reported. Results Created Date Observation Date Name Description Value Unit Range Abnormal Flag Note LastModifiedBy Organization Detail LastModifiedTime 04/18/1904/18/2022 urina lysis , dipst ick Leukocytes (reference range: negative chris/ l) Negati ve Not Available [facility] [address] [place], [address], 04/18/2022 12:11:32 04/18/1904/18/2022 urina lysis , dipst ick Nitrite (reference rage: negative mg/dl) negati ve Not Available Z_hrc_[facility] [address] [place], [address], 04/18/2022 12:11:32 04/18/19 23 04/18/2022 urina lysis , dipst ick Urobilinogen (reference range: 0.2-1 mg/dl) 0.2 Not Available Z_hrgm c_[facility] [address] [place] [address], [address], 04/18/2022 12:11:32 04/18/19 23 04/18/2022 urina lysis , dipst ick Protein (reference range: negative mg/dl) Negati ve Not Available Z_[address], [address], 04/18/2022 12:11:32 04/18/19 23 04/18/2022 urina lysis , dipst ick pH (reference range: 5-7) 6.0 Not Available [facility] [address] [place] [address], [address], 04/18/2022 12:11:32 04/18/19 23 04/18/2022 urina lysis , dipst ick Blood (reference range: negative Armond/ l) Negati ve Not Available Z_[address], [address], 04/18/2022 12:11:32 04/18/19 23 04/18/2022 urina lysis , dipst ick Specific [place] (reference range: 1.005-1.030) 1.015 Not Available [facility]_[address], [address], 04/18/2022 12:11:32 04/18/19 23 04/18/2022 urina lysis , dipst ick Ketone (reference range: negative mg/dl) Negati ve Not Available [address], [address], 04/18/2022 12:11:32 04/18/19 23 04/18/2022 urina lysis , dipst ick Bilirubin (reference range: negative mg/dl) Negati ve Not Available [facility] [address] [facility], [place], [address], 04/18/2022 12:11:32 04/18/19 23 04/18/2022 urina lysis , dipst ick Glucose (reference range: negative mg/dl) Negati ve Not Available [facility] [address] [place], [address], 04/18/2022 12:11:32 04/18/19 23 04/18/2022 urina lysis , dipst ick Appearance Clear Not Available Z_hrc _[facility] [place] [address] [place], [address], 04/18/2022 12:11:32 04/18/19 23 04/18/2022 urina lysis , dipst ick Color Yellow Not Available [facility] [address] [place] [address], [place], [address], 04/18/2022 12:11:32 05/01/19 23 05/01/2022 XR, lumbo sacra l spine , 2 or 3 view No observ ation record ed. [id number] [facility] [address], [place], [address], 06/06/2022 05:08:37 05/02/19 23 05/01/2022 bone densi ty No observ ation record ed. [id number] [facility] [address], [place], [address], 06/06/2022 05:08:37 10/04/19 23 10/03/2022 XR, hand No observ ation record ed. [email or web address] [facility] [address], [place], [address], 01/17/2023 09:46:31 10/04/19 23 10/03/2022 XR, wrist No observ ation record ed. [email or web address] [facility] [address], [place], [address], 01/17/2023 09:46:31 01/18/20 23 XR, ankle , 3 or more view [facility] [address] [place] [address] [phone] Patien t Name: CYNTHIA EDUARDO Access ion #: [id number] Sex: F : 1935 1 Dictat ed By: Teddy Valentin Attend ing Physic katerin: ABNER HALL Orderi Physic katerin: ABNER HALL Exam Date: 2022 09:43 AM Exam Name: XR ANKLE LT 3V+ Admitt ing Diagno sis(es ): INDICA TION: Trauma . TECHNI QUE: 4 radiog raphic views of the left ankle were obtain ed. COMPAR ASHLEY: Prior exam dated FINDIN GS/ IMPRES MOI: The ankle mortis e appear s intact . There is no eviden ce of acute fractu re or disloc ation. The visual ized joint space is well mainta ined.T he alignm ent is anatom ical.T he surrou nding soft tissue s are unrema rkable .There is no eviden ce of bony lesion s or erosio ns.The pre-ta lar, juxta- articu lar and pre-ac hilles fat pad appear unrema rkable Electr onical ly Signed by: Teddy Valentin at 2022 11:44: 59 AM Page 1 [email or web address] [facility] (Imaging) [address] [place], [address], 01/24/2023 15:13:57 01/18/20 XR, hip, unila teral [facility] [address] [place] [address] [phone] Patien t Name: CYNTHIA EDUARDO Access ion #: [id number] Sex: F : 1935 1 Dictat ed By: Pamela Carrera Attend ing Physic katerin: ABNER HALL Orderi ng Physic katerin: ABNER HALL Exam Date: 2022 09:43 AM Exam Name: XR HIP/PE LVIS LT 2-3V Admitt ing Diagno sis(es ): CLINIC AL INDICA TION: Pain TECHNI QUE: 3 radiog raphic views of the pelvis and left hip were obtain ed. Compar ashley: None FINDIN GS: Lucenc y and cortic al irregu larity at the greate r trocha nter. The visual ized joint space is well mainta ined. The alignm ent is anatom ical. Soft tissue s are unrema rkable . IMPRES MOI: Findin gs are suspic ious for avulsi on injury involv ing the greate r trocha nter on the left. Electr onical ly Signed by: Pamela Carrera at 2022 11:49: 21 AM Page 1 [email or web address] [facility] (Imaging) [address] [place], [address], 01/24/2023 15:13:57 Result Notes None recorded. Problems Name Problem SNOMED Code Status Onset Date Resolution Date Notes Provider Name and Address Organization Details Recorded Time Pain in right hand 3665842869798 09 Active 2022 Janet Kate NP [address], [place], [address] , [employer] 3 11:05:57 Pain of right wrist 0759285615625 00 Active 2022 Janet Kate NP [address], [address], [place], [address] , [employer] 3 11:06:21 Constipati on 30935374 Active 2022 Janet Kate NP [address], [place], [address] , [employer] 3 11:10:24 Pain of left hip joint 3543974810647 00 Active 2022 Rylan Hall MD [address] [facility], [address], [address] , [facility] [employer] [facility] [employer] [facility] 3 09:54:17 Soft tissue swelling of ankle joint 282378669 Active 2022 Rylan Hall MD [address] [facility], [address], [address] , [facility] [employer] [facility] [employer] [facility] 3 09:59:34 Hypertensi ve disorder 69850765 Active 2022 Rylan Hall MD [address] [facility], [address], [address] , [facility] [employer] [facility] [employer] [facility] 3 10:11:25 Lumbar spondylosi s 220423108 Active 2022 Rylan Hall MD [address] [facility], [address] [address], [place], [address] , [facility] [employer] [facility] [employer] [facility] 3 10:11:56 Numbness and tingling sensation of skin 832211624137 Active 2020 Not Available [facility] 3 04:52:42 Pain in throat 959880017 Active 2020 Not Available [facility] 3 04:52:42 Insomnia 187598910 Active 2019 Not Available [employer] 3 04:52:43 Mixed anxiety and depressive disorder 978462264 Active 2022 Not Available [facility] 3 04:52:43 Gastroesop hageal reflux disease 001365438 Active 2021 Not Available [employer] 3 04:52:43 Swelling of breast 039773547 Active 2021 Not Available [facility] 3 04:52:43 Major depressive disorder 828084014 Active 2019 Not Available [facility] 3 04:52:43 Anxiety 18286123 Active 2020 Not Available [facility] 3 04:52:43 Hyperlipid emia 55747856 Active 2019 Not Available [facility] 3 04:52:43 Essential hypertensi on 25158561 Active 2020 Not Available [facility] 3 04:52:43 Allergic rhinitis 99972984 Active 2020 Not Available [facility] 3 04:52:44 Osteoporos is 17462596 Active 2022 Not Available [facility] 3 04:52:44 Hyperglyce jolene 84009151 Active 2019 Not Available [facility] 3 04:52:44 Problem Notes None recorded. Procedures Surgical History Date Name Laterality Status Provider Name and Address Organization Details Recorded Time 3 Most Recent Bone Density completed Not Available [facility] 06/06/2022 04:42:05 Imaging Results Imaging Date Name Status LastModified by Organiz ation Details LastModified Time 05/01/2022 bone density completed [id number] [facility] [address], [place], [address], 06/06/2022 05:08:37 05/01/2022 XR, lumbosacral spine, 2 or 3 view completed [id number] [facility] [address], [place], [address], 06/06/2022 05:08:37 10/03/2022 XR, hand completed [email or web address] [facility] [address], [place], [address], 01/17/2023 09:46:31 10/03/2022 XR, wrist completed [facility] [address], [place], [address], 01/17/2023 09:46:31 01/17/2023 XR, ankle, 3 or more view completed [facility] (Imaging) [address] [place], [address], 01/24/2023 15:13:57 01/17/2023 XR, hip, unilateral completed [email or web address] [facility] ([facility]) [address] [place], [address], 01/24/2023 15:13:57 Procedure Notes None recorded. Medical Equipment None Reported. Allergies Allergen ID Allergen Name Allergen Category Reaction Reaction Severity Criticality Documentation Date Start Date Code Code System Note Provider Name and Address Organization Details Recorded Time 9170 Product containin g penicilli n (product) medicatio n rash Not available Not available 06/06/2022 83849 8001 SNOMED Not Available [facility] 3 05:07:52 9174 omeprazol e medicatio n abdominal pain Not available Not available 06/06/2022 7646 RxNorm Not Available [facility] 3 05:07:53 Medications Name Sig Start Date Stop Date Status Note LastModified by Organization Details LastModified Time losartan 50 mg tablet TAKE 1 TABLET BY MOUTH bid active increase d to 100 mg on 03/07/21 Not Available Not Available Not Available acetamino phen 325 mg tablet Take 2 tablets every 6 hours by oral route as needed. active Not Available Not Available No t Available paroxetin e 10 mg tablet TAKE 1 TABLET BY MOUTH EVERY DAY active Not Available Not Available No t Available lidocaine 4 % topical patch Apply 1 patch every 12 hours by topical route. active Not Available Not Available No t Available trazodone 50 mg tablet TAKE 0.5 TABLET BY MOUTH EVERY DAY 09/21 completed Not Available Not Available Not Available cetirizin e 10 mg tablet Take 1 tablet every day by oral route. active Not Available Not Available No t Available azithromy miguelina 250 mg tablet TAKE 2 TABLETS BY MOUTH TODAY, THEN TAKE 1 TABLET DAILY FOR 4 DAYS 07/07 completed Not Available Not Available Not Available alendrona te 70 mg tablet TAKE 1 TABLET BY MOUTH WEEKLY DIRECTED 2023 active Not Available Not Available Not Avai lable sulfameth oxazole 800 mg-trimet hoprim 160 mg tablet 01/06 completed Not Available Not Available Not Available omeprazol e 40 mg capsule,d elayed release TAKE 1 CAPSULE BY MOUTH ONCE A DAY 30 MINUTES BEFORE MORNING MEAL 07/13 completed Not Available Not Available Not Available lorazepam 0.5 mg tablet TAKE 1 TABLET BY MOUTH TWICE DAILY NEEDED ANXIETY active Not Available Not Available No t Available diphenhyd ramine 25 mg tablet Take 1 tablet every day by oral route as needed. 08/23 completed Not Available Not Available Not Available losartan 25 mg tablet TAKE 2 TABLET BY MOUTH TWO TIMES A DAY 2023 active Not Available Not Available Not Avai lable omeprazol e 20 mg capsule,d elayed release TAKE 1 CAPSULE BY MOUTH EVERY DAY 10/03 completed Not Available Not Available Not Available Banophen 25 mg capsule TAKE 1 CAPSULE EVERY DAY BY ORAL ROUTE NEEDED. 08/23 completed Not Available Not Available Not Available Visine-AC 0.05 %-0.25 % eye drops Apply 1 drop every day by ophthalm ic route. active Not Available Not Available No t Available zolpidem 5 mg tablet TAKE 1-2 TABLET BY MOUTH AT BEDTIME NEEDED 03/30 completed Not Available Not Available Not Available mirtazapi ne 15 mg tablet TAKE 0.5 TO 1 TABLET BY MOUTH AT BEDTIME 02/02 completed Not Available Not Available Not Available zolpidem 10 mg tablet TAKE 1 TABLET BY MOUTH EVERY DAY 10/03 completed pt using 1/2 tab prn. Not Available Not Available Not Available methylpre dnisolone 4 mg tablets in a dose pack 03/14 completed Not Available Not Available Not Available escitalop luz maria 10 mg tablet TAKE 1 TABLET BY MOUTH EVERY DAY 04/18 completed Not Available Not Available Not Available escitalop luz maria 20 mg tablet Take 1 tablet every day by oral route. active Not Available Not Available No t Available ciproflox acin 0.3 %-dexamet hasone 0.1 % ear drops,darrell pension INSTILL 4 DROPS INTO AFFECTED EAR TWICE A DAY FOR 7 DAYS 07/07 completed Not Available Not Available Not Available bupropion HCl XL 150 mg 24 hr tablet, extended release 01/06 completed Not Available Not Available Not Available escitalop luz maria 5 mg tablet TAKE 1 TABLET EVERY DAY BY ORAL ROUTE FOR 30 DAYS. 12/15 completed Not Available Not Available Not Available mirtazapi ne 7.5 mg tablet 03/14 completed Not Available Not Available Not Available Vitamin B-12 as needed 2019 active Not Available Not Available Not Avai labeleni Viktoria's wort 09/15 completed Not Available Not Available Not Available biotin 12/15 completed Not Available Not Available Not Available Nicole Low Dose Aspirin 09/15 completed Not Available Not Available Not Available calcium 600 mg (as carbonate )-vitamin D3 10 mcg (400 unit) tablet TAKE 1 TABLET BY MOUTH TWICE A DAY AFTER MEALS 04/12 completed Pt refuses Not Available Not Available Not Available alfalfa 250 mg tablet Take 2 tablets as needed by oral route. 2020 active Not Available Not Available Not Avai lable Trintelli x 10 mg tablet 01/06 completed Not Available Not Available Not Available Vitals Date Recorded Body mass index (BMI) Body height Oxygen saturation Oxygen saturation in Arterial blood by Pulse oximetry Heart rate Body temperature Body weight Systolic blood pressure Diastolic blood pressure Provider Name and Address Organization Details Last Updated DateTime 3 20.1 kg/m2 157.48 cm 98 % 98 % 86 /min 99.3 [degF] 72834.1 6 g 165 mm[Hg] 100 mm[Hg] Not Available [facility] 3 04:49:15 Date Recorded Body height Body mass index (BMI) Body weight Body temperature Heart rate Respiratory rate Oxygen saturation Oxygen saturation in Arterial blood by Pulse oximetry Systolic blood pressure Diastolic blood pressure Provider Name and Address Organization Details Last Updated DateTime 3 157.48 cm 20 kg/m2 98430.9 7 g 98.2 [degF] 88 /min 20 /min 97 % 97 % 140 mm[Hg] 90 mm[Hg] Janet Vasquez RN CA - S ND [employer] [facility] 3 10:50:10 Date Recorded Body height Body mass index (BMI) Body weight Body temperature Heart rate Respiratory rate Oxygen saturation Oxygen saturation in Arterial blood by Pulse oximetry Systolic blood pressure Diastolic blood pressure Provider Name and Address Organization Details Last Updated DateTime 3 157.48 cm 20.3 kg/m2 40865.1 g 97.1 [degF] 86 /min 20 /min 97 % 97 % 138 mm[Hg] 86 mm[Hg] Juan Ramon Sanchez [employer] [facility] [employer] [facility] 3 09:45:08 Date Recorded Body height Body mass index (BMI) Body weight Body temperature Respiratory rate Heart rate Oxygen saturation Oxygen saturation in Arterial blood by Pulse oximetry Systolic blood pressure Diastolic blood pressure Provider Name and Address Organization Details Last Updated DateTime 3 157.48 cm 20.5 kg/m2 02051.7 g 97.1 [degF] 16 /min 88 /min 98 % 98 % 128 mm[Hg] 78 mm[Hg] Juan Ramon Sanchez MT [employer] [facility] [employer] [facility] 3 15:11:00 Date Recorded Body weight Body mass index (BMI) Body height Body temperature Heart rate Oxygen saturation Oxygen saturation in Arterial blood by Pulse oximetry Systolic blood pressure Diastolic blood pressure Provider Name and Address Organization Details Last Updated DateTime 4 42973.3 5 g 18.1 kg/m2 167.64 cm 97.6 [degF] 82 /min 95 % 95 % 192 mm[Hg] 96 mm[Hg] Queta Ortiz MA [facility] [employer] [facility] 4 14:08:42 Social History Question Answer Notes LastModified by Organizat ion Details LastModified Time Tobacco Smoking Status Former Smoker Not Available [facility] 06/06/2022 04:31:00 Are You Blind Or Do You Have Difficulty Seeing? No [id number].90071 [id number] Information not available 06/06/2022 Is Blood Transfusion Acceptable In An Emergency? Yes Information not available 10/03/2022 What Is Your Level Of Caffeine Consumption? Moderate MIGRATION.78502 [id number] Information not available 06/06/2022 How Much Tobacco Do You Chew? None MIGRATION.80892 91052 Information not available 06/06/2022 What Is Your Code Status? DNR Information not available 10/03/2022 In The 14 Days Before Symptom Onset, Have You Had Close Contact With A Laboratory-confi rmed COVID-19 While That Case Was Ill? No MIGRATION.16740 85045 Information not available 06/06/2022 In The 14 Days Before Symptom Onset, Have You Had Close Contact With A Person Who Is Under Investigation For COVID-19 While That Person Was Ill? No MIGRATION.18524 66016 Information not available 06/06/2022 Are You Deaf Or Do You Have Serious Difficulty Hearing? Yes MIGRATION.40699 38690 Information not available 06/06/2022 What Type Of Diet Are You Following? REGULAR MIGRATION.78581 76833 Information not available 06/06/2022 Which Illicit Or Recreational Drugs Have You Used? None MIGRATION.47070 29540 Information not available 06/06/2022 How Many Days Of Moderate To Strenuous Exercise, Like A Brisk Walk, Did You Do In The Last 7 Days? 3 Information not available 10/03/2022 On Those Days That You Engage In Moderate To Strenuous Exercise, How Many Minutes, On Average, Do You Exercise? 20 Information not available 10/03/2022 Do You Use Insect Repellent Routinely? No MIGRATION.93589 41230 Information not available 06/06/2022 Do You Have A Medical Power Of Concrete Puddler? Yes Libia Bruce Information not available 10/03/2022 What Is Your Relationship Status? MIGRATION.72340 18390 Information not available 06/06/2022 Do You Use Your Seat Belt Or Car Seat Routinely? Yes MIGRATION.16787 82860 Information not available 06/06/2022 Do You Have Smoke And Carbon Monoxide Detectors In Your Home? Yes MIGRATION.92712 99868 Information not available 06/06/2022 Are You Passively Exposed To Smoke? No MIGRATION.48922 29514 Information not available 06/06/2022 Are There Any Smokers In Your House? No MIGRATION.94364 36698 Information not available 06/06/2022 How Much Tobacco Do You Smoke? No MIGRATION.83286 92565 Information not available 06/06/2022 Do You Participate In Social Media? No MIGRATION.44119 55154 Information not available 06/06/2022 What Types Of Sporting Activities Do You Participate In? [employer]irste[employer] Information not available 10/03/2022 Do You Use Sunscreen Routinely? No MIGRATION.50757 53972 Information not available 06/06/2022 Have You Recently Traveled Abroad? No MIGRATION.89957 90279 Information not available 06/06/2022 Do You Have Difficulty Walking Or Climbing Stairs? No MIGRATION.51157 30649 Information not available 06/06/2022 Are You Currently In School? No MIGRATION.98193 58567 Information not available 06/06/2022 Sex: Female Functional Status Question Answer Note LastModified by [employer] Details LastModified Time What is your level of alcohol consumption? Occasional wine MIGRATION.75707 24002 Information not available 06/06/2022 Do you or have you ever used smokeless tobacco? Never used smokeless tobacco MIGRATION.58811 91080 Information not available 06/06/2022 Are you currently employed? No retired Information not available 10/03/2022 Do you have transportation difficulties? No MIGRATION.36846 77041 Information not available 06/06/2022 Are you able to walk? YESWOREST MIGRATION.10940 12789 Information not available 06/06/2022 Do you have difficulty doing errands alone? No MIGRATION.83392 23490 Information not available 06/06/2022 Are you able to care for yourself? Yes MIGRATION.09141 48565 Information not available 06/06/2022 Do you have difficulty dressing or bathing? No MIGRATION.23562 08209 Information not available 06/06/2022 Do you or have you ever used e-cigarettes or vape? Never used electronic cigarettes MIGRATION.81782 69218 Information not available 06/06/2022 What is your exercise level? Occasional MIGRATION.86541 53092 Information not available 06/06/2022 Mental Status Question Answer Note LastModified by [employer] Details LastModified Time Do you feel stressed (tense, restless, nervous, or anxious, or unable to sleep at night)? [id number] Information not available 10/03/2022 Do you have difficulty concentrating, remembering or making decisions? No MIGRATION.[id number] 26 Information not available 06/06/2022 Family History Relationship Description Onset Age of this Age Resolved Age Notes LastModified by Organization Details LastModified Time Mother Family history of malignant neoplasm [id number] Not available 06/06/2022 04:42:15 Father Hypertensive disorder [id number] Not available 06/06/2022 04:42:15 Brother Myocardial infarction [id number] Not available 06/06/2022 04:42:15 Sister Atrial fibrillation [id number] Not available 06/06/2022 04:42:15 Sister Hypertensive disorder [id number] Not available 06/06/2022 04:42:15 Medical History Condition [id number]|2024-08-23 14:32:00|2024-08-23 14:32:00|ED_ITS|[facility]|Health Information Management|[id number]|"HPI - Fall General Chief Complaint: Fall Stated [...] 15:08 Penicillins Allergy Unknown Verified 03/07/12 12:08 [facility] Past Medical History Medical History Celiac disease [...] arrangements: assisted living Additional living arrangements comments: [place] since 09/05/2023 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 They note that these would not change house attendant as patient has previously refused to intervene [...] (Clear) Urine pH 7.0 (5.0-9.0) Ur Specific [place] 1.012 (1.001-1.035) Urine Protein Trace (Negative) mg/dL Urine Glucose (UA) Negative (Negative) mg/dL Urine Ketones Negative (Negative) mg/dL Ur Blood (Man) Negative (Negative) Urine Nitrate Negative (Negative) Urine Bilirubin Negative (Negative) Urine Urobilinogen 0.2 (<2.0) mg/dL Add Ur Microanalysis Reviewed Leukocyte Esterase Rfl 3+ H (Negative) CHRIS/UL Urine RBC 0-2 (0-2) /hpf Urine WBC [...] Abrasion of elbow, right Patient Disposition: [facility] Senior Care/Asst Living Condition: Stable Instructions: Antibiotic Form, Fall [...] any new, worsening, unmanaged symptoms. Patient Language: Khmer Prescriptions: New sulfamethoxazole-trimethoprim [Bactrim DS] 800-160 mg tablet 1 tablet PO Q12H 5 Days Qty: 9 0RF Rx Instructions: received first dose in ED 5/18 PM, start next dose 08/24 AM ibuprofen 600 mg tablet 600 mg PO TID PRN (Reason: pain) Qty: 30 0RF acetaminophen 500 mg capsule 1,000 mg PO Q6H PRN (Reason: pain) Qty: 30 0RF Follow-up/Referrals: V[facility] Dior [Other] (per asst living documentation) PHYSICIAN NOT ON STAFF,NONSTAFF [Primary Care Provider] - Misbah Tamayo MD [Physician] - Stand Alone Forms: Half-Way Discharge Time of Disposition: 16:13 "
[2024-08-23] MEDS: HYDROcodone/acetaminophen (*CRX) 5-325 MG TABLET 1 TAB PO (14:56)
[2024-08-23] MEDS: TETANUS,DIPHTHERIA,AC PERTUSSIS ADULT (0.5 ML) BOOSTRIX IM (14:57)
[2024-08-23 15:56] LABS: Add Urine Microscopic? YES; Appearance Urine Cloudy (Clear); Bacteria Urine 2+ /hpf; Bilirubin Urine Negative (Negative); Blood Urine Negative (Negative); Color Urine Yellow (Yellow); Glucose Urine UA Negative (Negative); Ketones Urine Negative (Negative); Leukocyte Esterase Ur 3+ LEU/UL (Negative); Need Manual Microscopic Reviewed; Nitrate Urine Negative (Negative); Protein Urine Trace mg/dL (Negative); RBC Urine 0-2 /hpf (0-2); Specific Grav Ur 1.012 (1.001-1.035); Squamous Epithelial Cell Urine Many /hpf (Few); Urobilinogen Urine 0.2 mg/dL (<2.0); WBC Urine 51-100 /hpf (0-3)
[2024-08-23] MEDS: SULFAMETHOXAZOLE/TRIMETHOPRIM 800/160 MG DS TABLET 1 TAB PO (16:28)
[2024-08-23 16:57] VITALS: BP 162/84; PULSE 68; RESP 18; O2SAT 100
== END 2024-08-23 16:59 ==
PROVIDERS: Emergency Provider Student in an Organized Health Care Education/Training Program
DX: S01.01XA Laceration without foreign body of scalp, initial encounter (principal); S50.311A Abrasion of right elbow, initial encounter; W18.30XA Fall on same level, unspecified, initial encounter; M50.30 Other cervical disc degeneration, unspecified cervical region; N39.0 Urinary tract infection, site not specified; Z23 Encounter for immunization; K90.0 Celiac disease; Z85.3 Personal history of malignant neoplasm of breast; Z87.891 Personal history of nicotine dependence
CPT/HCPCS: 12001; 70450; 72125; 73070; 81001; 87086; 90471; 90715; 99284; A9270